=== PATIENT | male | born 1965 | race Caucasian/White ===

== ENCOUNTER 2019-07-20 17:41 | Inpatient (IN) | payer MEDICAID, SELFPAY ==
[2019-07-20 18:07] VITALS: BP 145/87; PULSE 97; RESP 24; TEMP 36.7; O2SAT 97; BMI 42.3
--- NOTE | 2019-07-20 18:31 | XR_ITS ---
WS: [id number] XR chest 1V portable [id number] REASON FOR EXAM: cough FINDINGS: The heart and mediastinal interfaces normal. The lung merino are well aerated. No pneumonia, pleural effusion, pulmonary edema, no mass effect. Th ere is scattered calcified granulomas seen. The hilum and apices are normal. No osseous abnormalities. XR/XR chest 1V portable [id number] IMPRESSION: Negative chest for active pathology
--- NOTE | 2019-07-20 18:33 | ECG_ITS ---
Measurements Intervals [place] Rate: 95 P: -7 MA: 147 QRS: 25 QRSD: 74 T: 46 QT: 335 QTc: 421 SINUS RHYTHM No previous ECG available for comparison Electronically Signed On 07-21-2019 16:53:24 [employer] DIVISION SUPERVISOR by Sudhir Fortune M.D. [email or web address]
[2019-07-20] MEDS: acetaminophen 500 mg Tablet 1000 MG PO (18:49)
[2019-07-20] MEDS: LORazepam 2 mg/mL INJ 1 mL 1 MG IVP (19:00)
[2019-07-20] MEDS: sodium chloride 0.9% 1,000 ML 999 ML IV (19:01)
[2019-07-20 19:05] LABS: Basophils # 0.1 10^3/uL (0.0-0.1); Basophils % 0.9 %; Eosinophils # 0.3 10^3/uL (0.0-0.8); Eosinophils % 3.1 %; Hematocrit 26.3 % (42.0-52.0); Hemoglobin 7.2 g/dL (11.7-16.6); Lymphocytes # 1.9 10^3/uL (0.8-4.8); Lymphocytes % 18.5 %; Mean Corpuscular HGB Conc 27.4 g/dL (30.0-36.0); Mean Corpuscular Hemoglobin 18.4 pg (28.0-34.0); Mean Corpuscular Volume 67.3 fL (80-94); Mean Platelet Volume 9.9 fL (7.4-10.4); Monocytes # 1.1 10^3/uL (0.2-0.9); Monocytes % 11.3 %; Neutrophils # 6.6 10^3/uL (1.8-7.7); Neutrophils % 64.9 %; Nucleated Red Blood Cells # 0.2 /100WBC; Nucleated Red Blood Cells % 1.7 %; Platelet Count 631 10^3/cmm (130-400); Red Blood Count 3.91 10^6/uL (4.1-5.3); White Blood Count 10.1 10^3/uL (4.0-10.0)
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
[2019-07-20 19:19] LABS: Lactic Acid level (Lactate) 3.3 mmol/L (0.5-2.2)
[2019-07-20 19:26] VITALS: BP 146/90; PULSE 94; RESP 16; O2SAT 97
[2019-07-20 19:28] LABS: Alanine Aminotransferase 21 U/L (0-41); Alkaline Phosphatase 85 IU/L (40-130); Anion Gap 17.9 (5-19); Aspartate Amino Transferase 18 U/L (0-40); Blood Urea Nitrogen 13 mg/dL (6-20); Calcium 9.2 mg/dL (8.5-10.5); Carbon Dioxide 23 mmol/L (22-29); Chloride 97 mmol/L (98-107); Globulin 4.1 g/dL (1.3-4.6); Glucose 201 mg/dL (65-115); Lipase 17 U/L (13-60); NT Pro B Type Natriuretic Pept 44 pg/mL (0-125); Potassium 3.9 mmol/L (3.5-5.1); Sodium 134 mmol/L (136-145); Total Bilirubin 0.3 mg/dL (0.15-1.2); Total Protein 8.1 g/dL (6.6-8.7)
[2019-07-20 19:30] VITALS: PULSE 101; RESP 18; O2SAT 95
[2019-07-20] MEDS: ipratropium-albuterol 3 mL Neb INHALATION (19:31)
[2019-07-20 19:35] VITALS: PULSE 95; O2SAT 97
--- NOTE | 2019-07-20 20:20 | CTR_ITS ---
PROCEDURE INFORMATION: Exam: CT Head Without Contrast Exam date and time: 07/20/2019 8:49 PM Age: 53 years old Clinical indication: Other: Syncope TECHNIQUE: Imaging protocol: Computed tomography of the head without contrast. Total DLP: 899.28 mGy-cm Radiation optimization: All CT scans at this facility use at least one of these dose optimization techniques: automated exposure control; mA and/or kV adjustment per patient size (includes targeted exams where dose is matched to clinical indication); or iterative reconstruction. COMPARISON: No relevant prior studies available. FINDINGS: Brain: Normal. No hemorrhage. Unremarkable white matter. No mass effect. Ventricles: Normal. No ventriculomegaly. Bones/joints: Unremarkable. No acute fracture. Sinuses: Visualized sinuses are unremarkable. No fluid levels. Mastoid air cells: Visualized mastoid air cells are well aerated. Soft tissues: Unremarkable. CT/CT head wo con* [id number] IMPRESSION: No acute intracranial abnormality. Radiation Dose CTDIVOL = (mGy): DLP = 899.28 (mGy-cm)
[2019-07-20 21:57] LABS: Influenza A by IFA Negative (Negative)
[2019-07-20 21:58] LABS: Influenza B by IFA Negative (Negative)
[2019-07-20 22:07] LABS: ABG PCO2 34.7 mmHg (35-45); ABG PH Result 7.45 (7.35-7.45); Arterial Blood Gas Hematocrit 22.5 % (42-52); Base Excess ABG 0.1 mmol/L (-2.0-2.0); Blood Gas Allen Test Pos; Blood Gas Sample Site Radial, right; Blood Gas Sample Type Arterial; HCO3 ABG 24.1 mmol/L (22-26); Oxygen Device NC; PO2 ABG 74.5 mmHg (80.0-100.0)
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
--- NOTE | 2019-07-20 23:07 | CTR_ITS ---
PROCEDURE INFORMATION: Exam: CT Angiography Chest With Contrast Exam date and time: 07/20/2019 11:18 PM Age: 53 years old Clinical indication: Condition or disease; Lung condition and disease; Copd; Complications not specified; Cough and other: Syncope; Prior surgery; Surgery date: 6+ months; Surgery type: Stents; Additional info: Syncope and copd TECHNIQUE: Imaging protocol: Computed tomographic angiography of the chest with intravenous contrast. 3D rendering: MIP and/or 3D reconstructed images were created by the technologist. Total DLP: 628.93 mGy-cm Radiation optimization: All CT scans at this facility use at least one of these dose optimization techniques: automated exposure control; mA and/or kV adjustment per patient size (includes targeted exams where dose is matched to clinical indication); or iterative reconstruction. Contrast material: OMNI 350; Contrast volume: 95 ml; Contrast route: 20G; COMPARISON: CR XR chest 1V portable [id number] 07/20/2019 6:[address] angiography chest 12/04/2011. No images. FINDINGS: Pulmonary arteries: Suboptimal pulmonary arterial contrast enhancement. This will limit assessment for pulmonary emboli. No grossly visible pulmonary emboli/pulmonary arterial thrombus. Aorta: Unremarkable. No aortic aneurysm. No aortic dissection. Inferior vena cava: IVC filter. Lungs: Subsegmental alveolar airspace disease process posterior basal segment left lower lobe dimensions 47 mm by 20 mm x 32 mm. Associated mild parenchymal stranding. Adjacent satellite focus of ground-glass interstitial disease measuring under 7 mm. Second adjacent satellite nodule measuring 4 mm. Third adjacent satellite nodule approximately 8 mm in diameter also identified. Unable to differentiate discoid atelectasis from pneumonia or active neoplastic process. The aforementioned constellation of findings raising suspicion to warrant follow up examination. For this reason I would recommend repeat CT of the chest in 3-6 months for further evaluation of the aforementioned findings. For patients at low risk (minimal or absent history of smoking and of other known risk factors), recommend CT at 3-6 months, then consider CT at 18-24 months. For patients at high risk (history of smoking or of other known risk factors), recommend CT at 3-6 months, then CT at 18-24 months. (Anand et al., Fleischner Society, 2017). Pleural space: Unremarkable. No pneumothorax. No pleural effusion. Heart: Assessment of the cardiac structures reveals coronary artery disease. Lymph nodes: Unremarkable. No enlarged lymph nodes. Bones/joints: No visible active musculoskeletal pathology. Soft tissues: Findings suggesting mild gynecomastia. CT/CT angio chest PE protcl [id number] IMPRESSION: 1. Subsegmental alveolar airspace disease process posterior basal segment left lower lobe dimensions 47 mm by 20 mm x 32 mm. Unable to differentiate discoid atelectasis from pneumonia or active neoplastic process. Recommend follow-up CT chest in 3-6 months for further evaluation 2. Adjacent satellite pulmonary nodules left lower lobe. 3. For patients at low risk (minimal or absent history of smoking and of other known risk factors), recommend CT at 3-6 months, then consider CT at 18-24 months. For patients at high risk (history of smoking or of other known risk factors), recommend CT at 3-6 months, then CT at 18-24 months. (Anand et al., Fleischner Society, 2017). 4. Suboptimal pulmonary arterial contrast enhancement. No grossly visible pulmonary embolism. 5. Findings suggesting mild gynecomastia. Radiation Dose CTDIVOL = (mGy): DLP = 628.93 (mGy-cm)
[2019-07-20 23:57] VITALS: BP 138/85; PULSE 94; RESP 24; O2SAT 97
[2019-07-21] VITALS (17 sets, daily range): BP systolic 100–147; BP diastolic 65–85; PULSE 55–100; RESP 16–24; TEMP 36.6–37.2; O2SAT 93–100
[2019-07-21] MEDS: iohexol 350 mg/mL 100 mL Btl IV (00:30)
--- NOTE | 2019-07-21 00:35 | USCV_ITS ---
Socrates Coker Age: 53 Gender: M : 1965 Exam Date: 07/21/2019 06:15 Ordering Phys: Zohreh Samuels MD Technologist: Jessica Bond Exam Location: [facility] Indication: SYNCOPE BP: 127 / 73 HR: 96 Rhythm: Sinus Technical Quality: Very technically difficult study MEASUREMENTS (Male / Female) Normal Values DOPPLER AV Peak Velocity 155.0 cm/s LVOT Peak Velocity 93.0 cm/s MV Area PHT 3.5 cm squared Mitral E to A Ratio 1.2 MV E' Velocity 69.0 cm/s TV Peak E Velocity 74.0 cm/s PV Peak Velocity 111.0 cm/s RV Acceleration Time 0.1 s RV Ejection Time 0.3 s RV AcT/ET 0.3 FINDINGS Left Ventricle Left ventricular cavity not well visualized. Probably normal left ventricular systolic function. Left ventricular ejection fraction is estimated at 55 %. Although no diagnostic regional wall motion abnormality could be identified, this possibility cannot be completely excluded based on the study. Right Ventricle Right ventricle not well visualized. Probably normal right ventricular size and systolic function. Right Atrium Right atrium not well visualized. Left Atrium Left atrium not well visualized. Mitral Valve Mitral valve not well visualized. Aortic Valve Aortic valve not well visualized. No aortic valve stenosis. Tricuspid Valve Tricuspid valve not well visualized. Pulmonic Valve Pulmonic valve not well visualized. No pulmonary valve stenosis. Pericardium No pericardial effusion. Aorta Aorta not well visualized. CONCLUSIONS 1. This is a technically very difficult study. 2. Probably normal left ventricular systolic function. Left ventricular ejection fraction is estimated at 55 %. Although no diagnostic regional wall motion abnormality could be identified, this possibility cannot be completely excluded based on the study. 3. Probably normal right ventricular size and systolic function. 4. No prior similar studies to compare. Aliyah Love MD (Electronically Signed) Final Date: 21 July 2019 13:03 S
[2019-07-21] MEDS: dextrose 5%-sod chloride 0.45% 1,000 ML 75 ML IV (01:29)
[2019-07-21 01:52] LABS: Prolactin 15.67 ng/mL (4.0-15.2)
[2019-07-21 06:12] LABS: Basophils # 0.1 10^3/uL (0.0-0.1); Basophils % 0.6 %; Eosinophils # 0.2 10^3/uL (0.0-0.8); Eosinophils % 2.2 %; Hematocrit 24.1 % (42.0-52.0); Hemoglobin 6.7 g/dL (11.7-16.6); Lymphocytes # 0.9 10^3/uL (0.8-4.8); Lymphocytes % 9.1 %; Mean Corpuscular HGB Conc 27.8 g/dL (30.0-36.0); Mean Corpuscular Hemoglobin 18.6 pg (28.0-34.0); Mean Corpuscular Volume 66.9 fL (80-94); Mean Platelet Volume 10.3 fL (7.4-10.4); Monocytes % 9.7 %; Neutrophils # 7.9 10^3/uL (1.8-7.7); Neutrophils % 77.3 %; Nucleated Red Blood Cells # 0.1 /100WBC; Platelet Count 603 10^3/cmm (130-400); White Blood Count 10.2 10^3/uL (4.0-10.0)
[2019-07-21 06:28] LABS: Anion Gap 14.1 (5-19); Blood Urea Nitrogen 11 mg/dL (6-20); Calcium 8.7 mg/dL (8.5-10.5); Carbon Dioxide 26 mmol/L (22-29); Chloride 97 mmol/L (98-107); Estmated Average Glucose 154; Glucose 205 mg/dL (65-115); Lactic Acid level (Lactate) 2.3 mmol/L (0.5-2.2); Osmolality Calculated 278 mOsm/kg (285-295); Potassium 4.1 mmol/L (3.5-5.1); Sodium 133 mmol/L (136-145)
[2019-07-21 06:38] LABS: Chol HDL Ratio 2.89 mg/dL (1.0-5.00); Cholesterol 107 mg/dL (0-200); HDL Cholesterol 37 mg/dL (60-100); LDL Cholesterol Calculated 50 mg/dL (50-129); LDL HDL Ratio 1.35 RATIO (0.00-3.22); Thyroid Stimulating Hormone 0.96 uIU/mL (0.27-4.20); Triglycerides 98 mg/dL (0-150)
[2019-07-21 06:49] LABS: Alcohol Level < 10 mg/dL (0-10)
[2019-07-21] MEDS: pantoprazole 40 mg SDV IVP ×2 (08:30→17:50)
[2019-07-21] MEDS: folic acid 1 mg Tablet PO (08:30)
[2019-07-21] MEDS: thiamine 100 mg Tablet PO (08:30)
[2019-07-21] MEDS: azithromycin 250 mg Tablet PO (08:30)
[2019-07-21] MEDS: multivitamin therapeutic Tablet 1 TAB PO (08:30)
--- NOTE | 2019-07-21 12:20 | PC.CHAP ---
Pastoral Care Encounter/Spiritual Assessment Type of Contact [] Declined horticultural specialty grower field visit [] Patient/Family/Request visit [] Outpatient visit [] Follow-up visit [] Physician referral [] Code/Alert [x] Routine visit [] Staff referral [] Actively dying [] Patient sleeping [] Family support [] [] Out of room [] Palliative care [] [] Receiving care in room [] Pre-surgical visit [] Trauma [] Long length of stay [] ICU visit [] Other: Relational/Emotional Strength [x] Patient feels connected with others/family/visitors/staff [] Distress [] Loneliness/isolation [] Abandonment Spirituality of Patient [] Person of Marielos [] Attends Methodist of their Marielos [] Believes in Prayer [] Reads Bible or Synagogue materials [x] There are Spiritual issues to be addressed Director Telecommunications Interventions [x] Prayer [x] Active listening [x] Non-anxious presence [x] Spiritual/emotional support [] Crisis/trauma care [x] Spiritual counseling [] Bereavement support [] Provided bereavement packet [] Provided Bible/devotional materials [] Provided toy/stuffed animal, coloring book to patient or family member [] Provided Communion [] Anointing/[place] [] Salvation [] Completed spiritual assessment [] Other: Impact on Illness or Injury [] Angry [] Fearful [] Anxious [] Often cries [] Exhaustion [] Unable to work [] Unable to attend jewish [] Unable to walk/stand [] Unable to read [] Unable to drive [] Unable to eat/drink [] Unable to sleep [] Unable to be with family [] Patient intubated [x] Other: n/a Summary Time spent with patient 4 minutes
--- NOTE | 2019-07-21 14:12 | CTR_ITS ---
PROCEDURE INFORMATION: Exam: CT Abdomen And Pelvis With Contrast Exam date and time: 07/21/2019 2:47 PM Age: 53 years old Clinical indication: Abdominal tenderness; Prior surgery; Surgery type: Stents, appy; Additional info: Gi bleed with elevated lactate TECHNIQUE: Imaging protocol: Computed tomography of the abdomen and pelvis with intravenous contrast. Total DLP: 2378.46 mGy-cm Radiation optimization: All CT scans at this facility use at least one of these dose optimization techniques: automated exposure control; mA and/or kV adjustment per patient size (includes targeted exams where dose is matched to clinical indication); or iterative reconstruction. Contrast material: OMNI 350; Contrast volume: 95 ml; Contrast route: IV; COMPARISON: No relevant prior studies available. FINDINGS: Lungs: Area of consolidation at the left lung base reported on chest CT earlier same date. No change. Liver: There is hepatic steatosis. No focal hepatic lesion. Gallbladder and bile ducts: The gallbladder is normal. Pancreas: The pancreas is normal. Spleen: The spleen is normal. Adrenals: The adrenal glands are normal. Kidneys and ureters: The kidneys are normal. No hydronephrosis. Stomach and bowel: Series 3 images 36 to 41, coronal images 59-62 and sagittal images 41-45 demonstrate a 6 cm length of the transverse colon which demonstrates circumferential wall thickening. There is infiltration of the adjacent fat. There are no colonic diverticula. There is no evidence of pneumatosis. Appendix: No evidence of appendicitis. Intraperitoneal space: Unremarkable. No free air. No significant fluid collection. Vasculature: There is an IVC filter in place which appears appropriately position. No evidence of venous thrombus. Lymph nodes: Unremarkable. No enlarged lymph nodes. Bladder: The bladder is normal with no evidence of calculi. Reproductive: Unremarkable as visualized. Bones/joints: There are degenerative changes of the spine. No fracture. No focal osseous lesion. Soft tissues: Of incidental note are 2 areas of focal wall thickening and infiltration of the subcutaneous fat within the anterior abdominal wall. This could be secondary to inflammation or scarring. CT/CT abdomen pelvis w con* [id number] IMPRESSION: There is a 6 cm length of the transverse colon with circumferential wall thickening and infiltration of the adjacent fat. This is highly suspicious for colonic neoplasm. Inflammatory, infectious or ischemic colitis is unlikely to result in such a short segment of circumscribed circumferential wall thickening. Radiation Dose CTDIVOL = (mGy): DLP = 2378.46 (mGy-cm)
[2019-07-21] MEDS: magnesium citrate Btl 296 mL PO ×2 (15:33→20:56)
[2019-07-21] MEDS: bisacodyl 5 mg Tablet 40 MG PO (15:34)
[2019-07-21] MEDS: benzonatate 100 mg Capsule 200 MG PO ×2 (15:34→20:56)
[2019-07-21] MEDS: folic acid 1 MG, multivitamin inj 10 ML, thiamine 100 MG in sodium chloride 0.9% 1,000 ML 252.8 MG IV (15:35)
--- NOTE | 2019-07-21 15:59 | P.PN_ITS ---
Subjective Subjective: Interval history: Admitted overnight. H&P and labs noted. On examination patient is lying comfortably in bed, he had one bout of cough during my interview. Patient states he has been having recurrent episodes of syncope which are preceded by cough. He is also been complaining of shortness of breath on exertion for last 3 weeks. Patient states he has been having black tarry watery bowel movements for last 2 to 3 months and sometimes he is also had king blood in the pot after having his bowel movements. He denies of having any nausea, vomiting, headache, palpitations. Patient is a chronic alcoholic and drinks over 6 cans of beer every day. He denies of using every [id number] pain medication except Tylenol which she has been taking for last 1 week. He states he has taken 2 to 3 tablets in 1 week. He denies of having any previous history of similar complaints. He gives family history of prostate cancer. She has a history of 2 abdominal surgeries in the past 1 for a possible appendectomy and second was a possible exploration surgery when he had ingested cocaine bags. Vitals/I&O/Wt Last Vital Signs Temp 98.6 F 07/21/19 11:30 Pulse 92 07/21/19 11:30 Resp 20 H 07/21/19 11:30 BP 118/74 07/21/19 11:30 Pulse Ox 93 07/21/19 11:30 07/21/19 07/21/19 07/21/19 06:59 14:59 22:59 Intake Total 225 / 225 Balance 225 / 225 Weight last 48 hrs Weight 122.47 kg Physical Exam Narrative: EXAM NARRATIVE: General: No acute distress, AO x3, morbidly obese, pallor present HEENT: PERRLA, pupils bilaterally equal and reactive Chest: Normal vesicular breath sounds, no added sounds, equal good air entry bilaterally CVS: S1-S2 regular, no murmurs, no tachycardia, no gallops, no rubs Abdomen: Soft, nontender, no organomegaly, bowel sounds present, surgical scars present in the center of the abdomen from epigastric to navel area, also surgical scar present in right lower quadrant. Neuro: No focal deficits, no facial deformity, AO x3, power 5/5 in all limbs Data : 07/21/19 05:45 07/21/19 05:45 Micro: Microbiology 07/20/19 18:45 Blood Culture - Preliminary Blood SPECIMEN COLLECTED 07/20/19 18:44 Blood Culture - Preliminary Blood SPECIMEN COLLECTED A&P Assessment and plan (1) Syncope: Status: Acute Code(s): R55 - Syncope and collapse (2) Blood loss anemia: Status: Acute Code(s): D50.0 - Iron deficiency anemia secondary to blood loss (chronic) (3) Cough syncope: Status: Acute Code(s): R05 - Cough (4) Alcohol abuse: Status: Acute Code(s): F10.10 - Alcohol abuse, uncomplicated Additional A&P Information Blood loss anemia: Patient is a chronic alcoholic, has a history of prostate cancer, surgical abdominal history of exploration surgery for cocaine bags. Patient has history of black tarry bowel movements We will consult general surgery for EGD and colonoscopy. Protonix 40 mg IV twice daily. Transfused 2 units PRBC. Check hemoglobin hematocrit every 12 hours. Will do CTA chest given elevated lactate levels to rule out bowel ischemia. Patient is also being tender in the right lower quadrant. Check PT/INR, repeat lactate as last 1 was elevated. On discussion with Dr. Carmona from general surgery we will start patient on clear liquid diet today, will most likely need bowel prep during the evening. N.p.o. after midnight for possible EGD/colonoscopy tomorrow morning. Alcohol abuse: Ativan as per [facility] protocol. Banana bag. Followed by normal saline at 75 cc/h. Thiamine, folic acid, multivitamins as per protocol. Alcohol levels negative. Will check drug urine. Syncopal event: Most likely cough induced vasovagal. Prolactin level is mildly elevated which could be because of alcohol abuse. We will continue to monitor for any seizures and if required will start on medications at that time. Patient would most likely need outpatient neurology follow-up for a possible EEG. Morbid obesity: He will need outpatient sleep study Noncompliance: Patient does not use any medication at home, A1c level 7. Will start patient on insulin sliding scale at low protocol. TSH within normal limits. Full code No need of DVT prophylaxis because of anemia, will use SCDs Clear liquid diet today. Attestations Medical Necessity Statement*: Acute blood loss anemia, GI bleed, alcohol abuse Coding Level of Care Code Acute Experimental Mechanic for [facility] Fwd Diagnoses Syncope R55 Blood loss anemia D50.0 Cough syncope R05 Alcohol abuse F10.10
[2019-07-21 16:18] LABS: INR 1.07 (0.8-1.2)
[2019-07-21 16:39] LABS: Ferritin 5 ng/mL (30-400)
[2019-07-21] MEDS: sodium chloride 0.9% 100 ML 50 ML (17:49)
[2019-07-21] MEDS: sodium chloride 0.9% 1,000 ML 75 ML IV (20:56)
[2019-07-21] MEDS: diphenhydrAMINE 25 mg Capsule PO (21:47)
[2019-07-21] MEDS: LORazepam 2 mg Tablet PO (21:47)
[2019-07-21 22:46] LABS: Basophils % 0.3 %; Eosinophils # 0.1 10^3/uL (0.0-0.8); Eosinophils % 1.2 %; Hematocrit 28.8 % (42.0-52.0); Hemoglobin 8.1 g/dL (11.7-16.6); Lymphocytes # 1.2 10^3/uL (0.8-4.8); Lymphocytes % 15.7 %; Mean Corpuscular HGB Conc 28.1 g/dL (30.0-36.0); Mean Corpuscular Hemoglobin 19.5 pg (28.0-34.0); Mean Corpuscular Volume 69.2 fL (80-94); Mean Platelet Volume 10.6 fL (7.4-10.4); Monocytes # 0.8 10^3/uL (0.2-0.9); Monocytes % 10.1 %; Neutrophils # 5.6 10^3/uL (1.8-7.7); Neutrophils % 71.8 %; Nucleated Red Blood Cells # 0.1 /100WBC; Nucleated Red Blood Cells % 1.3 %; Platelet Count 565 10^3/cmm (130-400); Red Blood Count 4.16 10^6/uL (4.1-5.3); Red Cell Distribution Width 19.9 % (12.1-15.1); White Blood Count 7.8 10^3/uL (4.0-10.0)
[2019-07-22] VITALS (11 sets, daily range): BP systolic 91–130; BP diastolic 60–79; PULSE 59–93; RESP 16–20; TEMP 36.6–37.8; O2SAT 93–100
[2019-07-22 06:36] LABS: Alanine Aminotransferase 16 U/L (0-41); Albumin Level 3.3 g/dL (3.5-5.2); Alkaline Phosphatase 75 IU/L (40-130); Anion Gap 18.6 (5-19); Aspartate Amino Transferase 20 U/L (0-40); Blood Urea Nitrogen 8 mg/dL (6-20); Calcium 8.7 mg/dL (8.5-10.5); Carbon Dioxide 22 mmol/L (22-29); Chloride 100 mmol/L (98-107); Globulin 3.9 g/dL (1.3-4.6); Glomerular Filtration Rate 140.9 mL/min (90-130); Glucose 144 mg/dL (65-115); Potassium 4.6 mmol/L (3.5-5.1); Sodium 136 mmol/L (136-145); Total Bilirubin 1.1 mg/dL (0.15-1.2); Total Protein 7.2 g/dL (6.6-8.7)
[2019-07-22 06:36] LABS: Iron 102 ug/dL (59-158); Percent Saturation 26.4 % (20-50); Total Iron Binding Capacity 385 mcg/dl; Unsaturated Iron Binding 283 ug/dL (112-347)
[2019-07-22 07:41] LABS: Basophils % 0.5 %; Eosinophils # 0.2 10^3/uL (0.0-0.8); Eosinophils % 2.8 %; Hematocrit 30.7 % (42.0-52.0); Hemoglobin 8.7 g/dL (11.7-16.6); Lymphocytes # 1.1 10^3/uL (0.8-4.8); Mean Corpuscular HGB Conc 28.3 g/dL (30.0-36.0); Mean Corpuscular Hemoglobin 20.2 pg (28.0-34.0); Mean Corpuscular Volume 71.2 fL (80-94); Mean Platelet Volume 10.7 fL (7.4-10.4); Monocytes # 0.9 10^3/uL (0.2-0.9); Monocytes % 10.4 %; Neutrophils # 6.1 10^3/uL (1.8-7.7); Neutrophils % 72.6 %; Nucleated Red Blood Cells # 0.1 /100WBC; Nucleated Red Blood Cells % 1.1 %; Platelet Count 541 10^3/cmm (130-400); Red Blood Count 4.31 10^6/uL (4.1-5.3); Red Cell Distribution Width 20.1 % (12.1-15.1); White Blood Count 8.4 10^3/uL (4.0-10.0)
[2019-07-22] MEDS: pantoprazole 40 mg SDV IVP (09:53)
[2019-07-22] MEDS: thiamine 100 mg Tablet PO (10:16)
[2019-07-22] MEDS: benzonatate 100 mg Capsule 200 MG PO ×2 (10:16→15:44)
[2019-07-22] MEDS: folic acid 1 mg Tablet PO (10:16)
[2019-07-22] MEDS: azithromycin 250 mg Tablet PO (10:16)
[2019-07-22] MEDS: multivitamin therapeutic Tablet 1 TAB PO (10:16)
[2019-07-22] MEDS: sodium chloride 0.9% 1,000 ML 30 ML (12:17)
--- NOTE | 2019-07-22 12:32 | PC.RESP ---
Patient given information on Pulmonary Rehab.
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
[2019-07-22 14:09] LABS: Carcinoembryonic Antigen 5.3 ng/mL (0.0-4.7)
--- NOTE | 2019-07-22 21:09 | PM.DCS ---
Discharge Providers Date of Admission: 07/21/19 14:15 Date of Discharge: July 22, 2019 Attending Provider at Admission: Zohreh Samuels MD Attending Provider at Discharge: Vlad Sauceda Diagnoses at Discharge Discharge Diagnosis (1) Anemia: Status: Acute (2) Secondary malignant neoplasm of transverse colon: Status: Acute (3) Pneumonia: Status: Acute Reason for Visit Reason for Visit: Reason For Visit: blacking out Hospital Course Hospital Course: 53-year-old gentleman was assessed in the hospital due to melanotic stools, syncopal events and shortness of breath, found to have symptomatic anemia for which he received transfusion of 2 units of PRBC. No further symptoms noted in the hospital. Episodes are not suspicious for seizure. CT of the head was unremarkable. Lactic acid suspected secondary to malignancy with noted tumor in the transverse colon with near occlusion, not allowing scope to pass into the proximal colon. Biopsies obtained by surgery during colonoscopy. CTA without finding of PE, however, with noted opacity in the left lower lobe concerning for possible atelectasis versus pneumonia, although metastatic disease could not be excluded. At this time given low-grade temperature, and patient complaining of intermittent cough, shortness of breath, will undergo course of treatment with Levaquin. He will follow-up with surgery for results of biopsy and further planning for excision of the narrowed part of the colon with tumorous growth, and referral for additional follow-up with oncology. Findings on chest imaging will need additional assessment during staging of the suspected malignancy in case of no resolution with antibiotic treatment for pneumonia. His sister was at bedside, per speaking with the discussion regarding the findings on colonoscopy, suspected malignancy, and need for follow-up with specialty, and has been agreeable to assist her brother with his needs and encourage timely follow-up. Both expressed understanding regarding concern for seriousness of the underlying condition. Physical Exam Const: COMMON NORMALS: no apparent distress and oriented x3 NUTRITIONAL APPEARANCE: obese HENMT: COMMON NORMALS: oropharynx normal Neck/C-Spine: COMMON NORMALS: no JVD Resp: COMMON NORMALS: normal respiratory effort and clear to auscultation bilaterally AUSCULTATION: clear to auscultation bilaterally Cardio: COMMON NORMALS: no JVD, regular rhythm, S1 normal heart sound, S2 normal heart sound and no murmurs RHYTHM: regular rhythm HEART SOUNDS: S1 normal and S2 normal GI: COMMON NORMALS: normal to inspection, nondistended, normoactive bowel sounds, soft to palpation and non-tender PALPATION: Yes soft Extremity: COMMON NORMALS: no joint enlargement and no pedal edema Neuro: COMMON NORMALS: oriented x3 and moves all extremities Skin: COMMON NORMALS: no rashes or lesions noted GENERAL SKIN EXAM: no rashes or lesions noted OTHER: Tattoos. Discharge Data Data Completed and Pending: Completed Studies During Hospitalization Category Date Time Status CT abdomen pelvis w con* [id number] Rout ine Cat Scan 07/21/19 14:[address] angio chest PE protcl [id number] Urge nt Cat Scan 07/20/19 23:[address] head wo con* [id number] Urgent Cat Scan 07/20/19 20:20 Completed XR chest 1V billy ble [id number] Urgent Exams 07/20/19 18:31 Completed CV echo complete* [id number] Urgent Ultrasound 07/21/19 00:35 Completed Pending at discharge Category Date Time Status Arterial Blood Ga s W/O Coox Routine Lab 07/20/19 18:31 Ordered Blood Culture Sta t Lab 07/20/19 18:45 Results Pathology: Surgic al [PTH] Routine Pth 07/22/19 13:38 Received Labs from last 24 hours 07/22/19 07/22/19 07/22/19 06:56 06:56 04:50 WBC 8.4 RBC 4.31 Hgb 8.7 L Hct 30.7 L MCV 71.2 L MCH 20.2 L MCHC 28.3 L RDW 20.1 H Plt Count 541 H MPV 10.7 H Neut % (Auto) 72.6 Lymph % (Auto) 13.0 [place] % (Auto) 10.4 Eos % (Auto) 2.8 Baso % (Auto) 0.5 Neut # (Auto) 6.1 Lymph # (Auto) 1.1 [place] # (Auto) 0.9 Eos # (Auto) 0.2 Baso # (Auto) 0.0 Nucleated RBC % (a uto) 1.1 Nucleated RBCs # 0.1 Sodium 136 Potassium 4.6 Chloride 100 Carbon Dioxide 22 Anion Gap 18.6 BUN 8 Creatinine 0.6 L GFR Calculation 140.9 H Glucose 144 H Calcium 8.7 Iron TIBC % Saturation Unsat Iron Binding Total Bilirubin 1.1 AST 20 ALT 16 Alkaline Phosphata se 75 Total Protein 7.2 Albumin 3.3 L Globulin 3.9 Carcinoembryonic A g 5.3 H Blood Type Rho(D) Type Antibody Screen Crossmatch 07/21/19 07/21/19 07/21/19 22:30 05:45 04:50 WBC 7.8 RBC 4.16 Hgb 8.1 L Hct 28.8 L MCV 69.2 L MCH 19.5 L MCHC 28.1 L RDW 19.9 H Plt Count 565 H MPV 10.6 H Neut % (Auto) 71.8 Lymph % (Auto) 15.7 [place] % (Auto) 10.1 Eos % (Auto) 1.2 Baso % (Auto) 0.3 Neut # (Auto) 5.6 Lymph # (Auto) 1.2 [place] # (Auto) 0.8 Eos # (Auto) 0.1 Baso # (Auto) 0.0 Nucleated RBC % (a uto) 1.3 Nucleated RBCs # 0.1 Sodium Potassium Chloride Carbon Dioxide Anion Gap BUN Creatinine GFR Calculation Glucose Calcium Iron 102 TIBC 385 % Saturation 26.4 Unsat Iron Binding 283 Total Bilirubin AST ALT Alkaline Phosphata se Total Protein Albumin Globulin Carcinoembryonic A g Blood Type A Positive Rho(D) Type Positive Antibody Screen Negative Crossmatch See Detail Vitals: Last Vital Signs Temp 100.0 F H 07/22/19 18:35 Pulse 85 07/22/19 18:35 Resp 18 07/22/19 18:35 BP 91/60 07/22/19 18:35 Pulse Ox 93 07/22/19 18:35 Discharge Plan Discharge Patient Disposition: Home, Self-Care Condition: Stable Prescriptions: New Levaquin 750 mg tablet 750 mg PO DAILY 7 Days Qty: 7 RF: 0 albuterol sulfate 90 mcg/actuation HFA aerosol inhaler 2 inh INHALATION Q6H PRN (Reason: shortness of breath or wheezing) Qty: 8.5 RF: 0 Spiriva Respimat 1.25 mcg/actuation mist 2 puff INHALATION DAILY Qty: 4 RF: 0 Continued Tylenol 325 mg Tablet 325 mg PO QID PRN (Reason: Pain) RF: 0 Discharge Orders: Discharge Order (Routine); Ordered 07/22/19 Ordered By: Vlad Sauceda Referrals: Trav Carmona MD [Physician] - 08/05/19 10:30 am (After pathology results) Roxanna Murphy FNP-C [Referring] - 08/01/19 9:20 am Discharge Diet: Advance as tolerated and GI Soft Discharge Activity: Increase activity as tolerated Patient Instructions: Alcohol Abuse, Anemia, Albuterol (By breathing), Levofloxacin (By mouth), Tiotropium (By breathing), Iron Rich Diet (DC), Inferior Vena Cava Filter Placement (DC) Activity Restrictions/Additional Instructions: Avoid constipation and dehydration. Please abstain from oral at least reduce consumption of alcohol. Inhalers are prescribed for you to use due to shortness of breath and COPD. Please complete the antibiotic course and use incentive spirometry to rule out atelectasis and pneumonia as causes of 47 mm x 20 mm x 32 mm not clearly defined airspace disease process in the left lower lung. This will need additional follow-up by her primary care provider to make sure this is not metastatic disease. Discharge Date/Time: 07/22/19 18:00 Discharge Attestations Time Spent in Discharge Care*: greater than 30 min Quality Metrics Clinical Quality Measures During this hospital stay, did patient experience: None Coding Level of Care Code Acute Agriculture Laborer for Chg Fwd Diagnoses Anemia D64.9 Secondary malignant neoplasm of transverse colon C78.5 Pneumonia J18.9
== END 2019-07-22 18:00 | disposition home or self-care (01) | DRG 374 ==
LOC: ER 23:18 → MEDSURG 23:43
PROVIDERS: Student in an Organized Health Care Education/Training Program; Surgery; Admitting Provider Internal Medicine; Emergency Provider Emergency Medicine; Visit Provider Internal Medicine
PROC: 0DJ08ZZ Inspection of Upper Intestinal Tract, Via Natural or Artificial Opening Endoscopic (ICD-10-PCS; CPT 43235; principal; 2019-07-22 13:00)
PROC: 0DJD8ZZ Inspection of Lower Intestinal Tract, Via Natural or Artificial Opening Endoscopic (ICD-10-PCS; CPT 45378; 2019-07-22 13:00)
DX: C18.4 Malignant neoplasm of transverse colon (principal); J18.9 Pneumonia, unspecified organism; J45.901 Unspecified asthma with (acute) exacerbation; D62 Acute posthemorrhagic anemia; Z68.41 Body mass index [BMI] 40.0-44.9, adult; J44.9 Chronic obstructive pulmonary disease, unspecified; Z86.711 Personal history of pulmonary embolism; D64.9 Anemia, unspecified; Z88.5 Allergy status to narcotic agent; Z87.891 Personal history of nicotine dependence; R05 Cough; Z85.46 Personal history of malignant neoplasm of prostate; F10.20 Alcohol dependence, uncomplicated; E66.01 Morbid (severe) obesity due to excess calories; Z91.14 Patient's other noncompliance with medication regimen; K64.8 Other hemorrhoids; K57.30 Diverticulosis of large intestine without perforation or abscess without bleeding
CPT/HCPCS: 12345; 36415; 36430; 36600; 43235; 45380; 70450; 71045; 71275; 74177; 80048; 80053; 80061; 80307; 82378; 82728; 82803; 83036; 83540; 83550; 83605; 83690; 83880; 84146; 84443; 85025; 85610; 86850; 86900; 86920; 87040; 87804; 88305; 93005; 93306; 94640; 96372; 96375; 99282; C9113; G0378; J2060; J2704; J3411; J3490; J7030; J7611; J7799; P9016; Q0144; Q9967

== ENCOUNTER 2019-08-08 17:32 | Emergency (ER) | payer MEDICAID, SELFPAY ==
[2019-08-08 17:50] VITALS: PULSE 110; RESP 20; TEMP 37.3; O2SAT 97; BMI 47.0
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
[2019-08-08 18:00] VITALS: TEMP 37.3; O2SAT 97
--- NOTE | 2019-08-08 18:01 | XRR_ITS ---
PROCEDURE INFORMATION: Exam: XR Chest, 1 View Exam date and time: 08/08/2019 6:26 PM Age: 53 years old Clinical indication: Cough; Additional info: Cough, SOA TECHNIQUE: Imaging protocol: XR of the chest Views: 1 view. COMPARISON: CR XR chest 1V portable [id number] 07/20/2019 6:45 PM FINDINGS: Lungs: Unremarkable. No consolidation. Pleural space: Unremarkable. No pleural effusion. No pneumothorax. Heart/Mediastinum: Unremarkable. No cardiomegaly. Bones/joints: Old right rib fracture. XR/XR chest 1V portable [id number] IMPRESSION: No acute findings.
[2019-08-08 18:44] LABS: Basophils # 0.1 10^3/uL (0.0-0.1); Eosinophils # 0.1 10^3/uL (0.0-0.8); Eosinophils % 1.7 %; Hematocrit 29.9 % (42.0-52.0); Hemoglobin 8.5 g/dL (11.7-16.6); Lymphocytes # 1.1 10^3/uL (0.8-4.8); Lymphocytes % 14.8 %; Mean Corpuscular HGB Conc 28.4 g/dL (30.0-36.0); Mean Corpuscular Hemoglobin 20.3 pg (28.0-34.0); Mean Corpuscular Volume 71.5 fL (80-94); Mean Platelet Volume 10.6 fL (7.4-10.4); Monocytes # 0.9 10^3/uL (0.2-0.9); Monocytes % 11.7 %; Neutrophils # 5.4 10^3/uL (1.8-7.7); Neutrophils % 70.2 %; Nucleated Red Blood Cells % 0.4 %; Platelet Count 562 10^3/cmm (130-400); Red Blood Count 4.18 10^6/uL (4.1-5.3); Red Cell Distribution Width 21.4 % (12.1-15.1); White Blood Count 7.7 10^3/uL (4.0-10.0)
[2019-08-08 18:45] LABS: Influenza A by IFA Negative (Negative); Influenza B by IFA Negative (Negative)
[2019-08-08 19:09] LABS: Alanine Aminotransferase 17 U/L (0-41); Albumin Level 3.9 g/dL (3.5-5.2); Alkaline Phosphatase 95 IU/L (40-130); Anion Gap 20.4 (5-19); Aspartate Amino Transferase 16 U/L (0-40); Blood Urea Nitrogen 6 mg/dL (6-20); Calcium 9.4 mg/dL (8.5-10.5); Carbon Dioxide 22 mmol/L (22-29); Chloride 92 mmol/L (98-107); Globulin 4.1 g/dL (1.3-4.6); Glomerular Filtration Rate 140.9 mL/min (90-130); Glucose 307 mg/dL (65-115); NT Pro B Type Natriuretic Pept 121 pg/mL (0-125); Osmolality Calculated 277 mOsm/kg (285-295); Potassium 4.4 mmol/L (3.5-5.1); Sodium 130 mmol/L (136-145); Total Bilirubin 0.3 mg/dL (0.15-1.2)
[2019-08-08] MEDS: acetaminophen 325 mg Tablet 650 MG PO (19:36)
[2019-08-08 20:32] VITALS: BP 146/82; PULSE 111; RESP 16; TEMP 36.6; O2SAT 97
[2019-08-12 08:49] LABS: Coronavirus Qual PCR Source SEE REPORT; Patient Symptomatic? SEE REPORT
[2019-08-12 08:50] LABS: Coronavirus Overall Results NOT DETECTED; Pan-SARS RNA: SEE REPORT; SARS-CoV-2 RNA: SEE REPORT
== END 2019-08-08 20:36 | disposition home or self-care (01) ==
PROVIDERS: Emergency Provider Emergency Medicine; PCP Nurse Practitioner Family
DX: J06.9 Acute upper respiratory infection, unspecified (principal); D63.0 Anemia in neoplastic disease; C78.5 Secondary malignant neoplasm of large intestine and rectum; J44.9 Chronic obstructive pulmonary disease, unspecified; Z87.891 Personal history of nicotine dependence
CPT/HCPCS: 12345; 36415; 71045; 80053; 83880; 85025; 87635; 87804; 99282; 99283

== ENCOUNTER 2019-11-21 18:38 | Emergency (ER) | payer MEDICAID, SELFPAY ==
[2019-11-21] VITALS (14 sets, daily range): BP systolic 97–136; BP diastolic 57–85; PULSE 71–97; RESP 14–20; TEMP 36.6–36.8; O2SAT 91–99; BMI 46.0
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
[2019-11-21 19:37] LABS: Basophils # 0.1 10^3/uL (0.0-0.1); Basophils % 0.6 %; Eosinophils # 0.3 10^3/uL (0.0-0.8); Eosinophils % 3.6 %; Hematocrit 27.9 % (42.0-52.0); Hemoglobin 7.6 g/dL (11.7-16.6); Mean Corpuscular HGB Conc 27.2 g/dL (30.0-36.0); Mean Corpuscular Hemoglobin 18.9 pg (28.0-34.0); Mean Corpuscular Volume 69.4 fL (80-94); Mean Platelet Volume 10.1 fL (7.4-10.4); Monocytes % 10.6 %; Neutrophils % 63.8 %; Nucleated Red Blood Cells % 0.3 %; Platelet Count 584 10^3/cmm (130-400); Red Blood Count 4.02 10^6/uL (4.1-5.3); Red Cell Distribution Width 18.6 % (12.1-15.1); White Blood Count 9.5 10^3/uL (4.0-10.0)
--- NOTE | 2019-11-21 20:00 | ECG_ITS ---
[facility] Test Date: 2019-11-21 Pat Name: Socrates Coker Department: Room: Gender: Male Machine Sander: : 1965 Requested By: Nikolai Campuzano Order Number: [id number] Constantine MD: Sudhir Fortune M.D. Measurements Intervals [place] Rate: 89 P: 29 NH: 149 QRS: 41 QRSD: 84 T: 83 QT: 357 QTc: 436 Interpretive Statements SINUS RHYTHM MINIMAL ST DEPRESSION [0.025+ mV ST DEPRESSION] Compared to ECG 07/20/2019 18:17:25 ST (T wave) deviation now present Electronically Signed On 11-22-2019 16:53:38 CDT by Sudhir Fortune M.D. [email or web address]
[2019-11-21 20:13] LABS: Anion Gap 20.2 (5-19); Blood Urea Nitrogen 9 mg/dL (6-20); Calcium 9.9 mg/dL (8.5-10.5); Carbon Dioxide 25 mmol/L (22-29); Chloride 96 mmol/L (98-107); Creatinine Clr Calc Pharmacy 140.4724; Glomerular Filtration Rate 101.1 mL/min (90-130); Glucose 128 mg/dL (65-115); Osmolality Calculated 282 mOsm/kg (285-295); Potassium 4.2 mmol/L (3.5-5.1); Sodium 137 mmol/L (136-145)
[2019-11-21] MEDS: diphenhydrAMINE 50 mg/mL SDV 1mL 25 MG IVP (21:28)
[2019-11-21] MEDS: acetaminophen 500 mg Tablet 1000 MG PO (21:28)
[2019-11-21] MEDS: HYDROmorphone 1 mg/mL INJ 1 mL IVP (21:56)
--- NOTE | 2019-11-21 22:05 | PC.NURSE ---
Pt. placed on 02 2L per NC for low 02 saturation. MD notified. RT to come and assess Pt. Pt. positioned for comfort. Medicated for pain.
[2019-11-21] MEDS: ipratropium-albuterol 3 mL Neb INHALATION (22:25)
[2019-11-22 00:30] VITALS: BP 128/58; PULSE 78; RESP 18
[2019-11-22 01:32] VITALS: BP 102/64; PULSE 85; RESP 18; O2SAT 96
[2019-11-22 02:40] VITALS: BP 95/54; PULSE 86; RESP 18; TEMP 36.6
[2019-11-22 03:13] VITALS: PULSE 78; RESP 18; TEMP 36.4
[2019-11-22 03:18] VITALS: BP 95/58; PULSE 87; RESP 18; TEMP 36.6; O2SAT 93
[2019-11-22 04:27] VITALS: BP 142/86; PULSE 82; RESP 18; TEMP 36.7
== END 2019-11-22 05:00 | disposition home or self-care (01) ==
PROVIDERS: Emergency Medicine; Emergency Provider Emergency Medicine; PCP Nurse Practitioner Family
DX: D50.0 Iron deficiency anemia secondary to blood loss (chronic) (principal); Z79.4 Long term (current) use of insulin; J44.9 Chronic obstructive pulmonary disease, unspecified; Z87.891 Personal history of nicotine dependence; Z85.038 Personal history of other malignant neoplasm of large intestine
CPT/HCPCS: 12345; 36415; 36430; 80048; 85025; 86850; 86900; 86920; 93005; 94640; 96361; 96374; 96375; 99283; C1751; J1170; J1200; P9016

== ENCOUNTER 2019-12-19 14:09 | Outpatient (CLI) | payer MEDICAID, SELFPAY ==
[2019-12-19 14:56] LABS: Basophils # 0.1 10^3/uL (0.0-0.1); Basophils % 0.4 %; Eosinophils # 0.2 10^3/uL (0.0-0.8); Eosinophils % 1.5 %; Hematocrit 32.7 % (42.0-52.0); Hemoglobin 9.4 g/dL (11.7-16.6); Lymphocytes # 1.3 10^3/uL (0.8-4.8); Lymphocytes % 10.2 %; Mean Corpuscular HGB Conc 28.7 g/dL (30.0-36.0); Mean Corpuscular Hemoglobin 22.7 pg (28.0-34.0); Mean Platelet Volume 12.1 fL (7.4-10.4); Monocytes # 1.2 10^3/uL (0.2-0.9); Monocytes % 9.9 %; Neutrophils # 9.57 10^3/uL (1.8-7.7); Neutrophils % 77.3 %; Nucleated Red Blood Cells % 0 %; Platelet Count 497 10^3/cmm (130-400); Red Blood Count 4.14 10^6/uL (4.1-5.3); Red Cell Distribution Width 24.6 % (12.1-15.1); White Blood Count 12.4 10^3/uL (4.0-10.0)
[2019-12-19 15:00] LABS: Blood Urea Nitrogen 6 mg/dL (6-20); Calcium 8.6 mg/dL (8.5-10.5); Carbon Dioxide 21 mmol/L (22-29); Chloride 97 mmol/L (98-107); Glomerular Filtration Rate 140.9 mL/min (90-130); Glucose 120 mg/dL (65-115); Osmolality Calculated 271 mOsm/kg (285-295); Sodium 132 mmol/L (136-145)
[2019-12-19 15:11] LABS: Anion Gap 17.8 (5-19)
[2019-12-19 15:12] LABS: Potassium 3.8 mmol/L (3.5-5.1)
== END 2019-12-19 14:10 | disposition home or self-care (01) ==
PROVIDERS: PCP Nurse Practitioner Family; Visit Provider Colon & Rectal Surgery
DX: R11.10 Vomiting, unspecified (principal)
CPT/HCPCS: 36415; 80048; 85025

== ENCOUNTER 2019-12-29 17:00 | Inpatient (IN) | payer MEDICAID, SELFPAY ==
[2019-12-29] VITALS (10 sets, daily range): BP systolic 101–161; BP diastolic 60–107; PULSE 72–99; RESP 16–20; TEMP 36.4–37.2; O2SAT 92–97; BMI 40.7
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
[2019-12-29] MEDS: morphine 4 mg/mL SDV 1 mL IVP ×4 (17:28→22:24)
[2019-12-29] MEDS: ondansetron 2 mg/ML SDV 2 mL 4 MG IVP (17:29)
[2019-12-29] MEDS: sodium chloride 0.9% 1,000 ML 999 ML IV (17:29)
--- NOTE | 2019-12-29 17:32 | CTR_ITS ---
PROCEDURE INFORMATION: Exam: CT Abdomen And Pelvis With Contrast Exam date and time: 12/29/2019 5:41 PM Age: 54 years old Clinical indication: Constipation and nausea and vomiting; Abdominal pain; Prior surgery; Surgery type: Egd, stents, appy, bowel; Patient HX: Colectomy x 2weeks; Additional info: Abd pain TECHNIQUE: Imaging protocol: Computed tomography of the abdomen and pelvis with intravenous contrast. Radiation optimization: All CT scans at this facility use at least one of these dose optimization techniques: automated exposure control; mA and/or kV adjustment per patient size (includes targeted exams where dose is matched to clinical indication); or iterative reconstruction. Contrast material: OMNI 300; Contrast volume: 95 ml; Contrast route: INTRAVENOUS (IV); COMPARISON: CT angio chest w abd pel w con 07/21/2019 3:24 PM RADIATION DOSE METRICS: Total DLP (mGy-cm): 1905.13 FINDINGS: Lungs: Limited assessment lung bases without evidence for active cardiopulmonary process. Minimal left lower lobe parenchymal scar. Liver: Unremarkable. No mass. Gallbladder and bile ducts: Normal. No calcified stones. No ductal dilation. Pancreas: Normal. No ductal dilation. Spleen: Normal. No splenomegaly. Adrenals: Normal. No mass. Kidneys and ureters: Normal. No hydronephrosis. Stomach and bowel: Status post gastroplasty with marked gastric distention proximal to the anastomotic sutures. Concern for a partial high-grade gastric outlet obstruction. Status post partial colectomy. Anastomotic suture line intact. Small bowel loops not ectatic. Appendix: Surgically removed. Intraperitoneal space: Anterior left upper quadrant intraperitoneal loculated fluid collection measuring 14.9 cm x 5.5 cm x 10.7 cm. Potential abscess. Postoperative seroma is a differential consideration. Surrounding mesenteric fat stranding. Second unorganized potential fluid collection within the intraperitoneal mesenteric space just distal to the loculated fluid collection dimensions approximately 5.5 cm x 2.5 cm x 4.0 cm. Potential unorganized seroma, hematoma, or even abscess. Again surrounding mesenteric fat inflammatory response. No free fluid in the pelvis. No generalized intraperitoneal ascites. Vasculature: IVC filter. The abdominal aorta is nonaneurysmal. Mild arterial sclerotic disease Lymph nodes: No visible active mesenteric or retroperitoneal lymphadenopathy. Bladder: Unremarkable as visualized. Reproductive: Unremarkable as visualized. Bones/joints: Degenerative disease of the visualized spine. No visible acute osseous abnormality. Soft tissues: Evidence of a recent midline laparotomy. Small incisional fluid collection in the infraumbilical midline incision measuring 4.4 cm by 1.5 cm x 3 cm. This fluid collection does contain emphysematous pockets. Potential incisional seroma versus abscess. This fluid collection lies just ventral to the linea alba. Stable 2 small foci of subcutaneous nodularity one at the supper pubic level of the 2nd in the left inguinal region stable since 07/21/2019. Clinical significance indeterminate. CT/CT abdomen pelvis w con* [id number] IMPRESSION: 1. Status post gastroplasty with marked gastric distention proximal to the anastomotic sutures. Concern for a partial high-grade gastric outlet obstruction. 2. Anterior left upper quadrant intraperitoneal loculated fluid collection measuring 14.9 cm x 5.5 cm x 10.7 cm. Potential abscess. 3. Second unorganized potential fluid collection within the intraperitoneal mesenteric space just distal to the loculated fluid collection dimensions approximately 5.5 cm x 2.5 cm x 4.0 cm. Potential unorganized seroma, hematoma, or even abscess. 4. Evidence of a recent midline laparotomy. Small incisional fluid collection in the infraumbilical midline incision measuring 4.4 cm by 1.5 cm x 3 cm. This fluid collection does contain emphysematous pockets. Potential incisional seroma versus abscess. 5. Focal reactive mesenteritis/panniculitis. 6. Other nonurgent and nonemergent findings as detailed in text above. Radiation Dose CTDIVOL = (mGy): DLP = 1905.13 (mGy-cm)
[2019-12-29 17:39] LABS: Basophils % 0.4 %; Eosinophils # 0.2 10^3/uL (0.0-0.8); Eosinophils % 1.4 %; Hematocrit 33.6 % (42.0-52.0); Hemoglobin 9.9 g/dL (11.7-16.6); Lymphocytes # 1.6 10^3/uL (0.8-4.8); Lymphocytes % 15.3 %; Mean Corpuscular HGB Conc 29.5 g/dL (30.0-36.0); Mean Corpuscular Hemoglobin 21.9 pg (28.0-34.0); Mean Corpuscular Volume 74.3 fL (80-94); Mean Platelet Volume 11.3 fL (7.4-10.4); Monocytes # 1.1 10^3/uL (0.2-0.9); Monocytes % 10.1 %; Neutrophils # 7.71 10^3/uL (1.8-7.7); Neutrophils % 72.3 %; Nucleated Red Blood Cells % 0 %; Platelet Count 531 10^3/cmm (130-400); Red Blood Count 4.52 10^6/uL (4.1-5.3); Red Cell Distribution Width 22.8 % (12.1-15.1); White Blood Count 10.7 10^3/uL (4.0-10.0)
[2019-12-29 18:01] LABS: Alanine Aminotransferase 7 U/L (0-41); Albumin Level 3.6 g/dL (3.5-5.2); Alkaline Phosphatase 70 IU/L (40-130); Anion Gap 19.1 (5-19); Aspartate Amino Transferase 16 U/L (0-40); Blood Urea Nitrogen 11 mg/dL (6-20); Calcium 9.1 mg/dL (8.5-10.5); Carbon Dioxide 24 mmol/L (22-29); Chloride 96 mmol/L (98-107); Globulin 5.3 g/dL (1.3-4.6); Glomerular Filtration Rate 117.5 mL/min (90-130); Glucose 121 mg/dL (65-115); Lipase 22 U/L (13-60); Osmolality Calculated 277 mOsm/kg (285-295); Potassium 4.1 mmol/L (3.5-5.1); Sodium 135 mmol/L (136-145); Total Bilirubin 0.2 mg/dL (0.15-1.2); Total Protein 8.9 g/dL (6.6-8.7)
[2019-12-29] MEDS: iohexol 300 mg/mL 100 mL Btl IV (18:03)
[2019-12-29] MEDS: piperacillin-tazobactam 3.375 GM in sodium chloride 0.9% (plus) 50 ML IV (18:33)
--- NOTE | 2019-12-29 18:49 | XRR_ITS ---
PROCEDURE INFORMATION: Exam: XR Chest, 1 View Exam date and time: 12/29/2019 8:03 PM Age: 54 years old Clinical indication: Device placement; Ng tube; Prior surgery; Surgery date: 6+ months; Surgery type: Heart stents; Patient HX: Abd pain; Nausea vomiting; Constipation; Additional info: Ng tube placement TECHNIQUE: Imaging protocol: XR of the chest Views: 1 view. COMPARISON: CR XR chest 1V portable [id number] 08/08/2019 6:13 PM FINDINGS: Tubes, catheters and devices: There is an enteric tube present with the tip in the body of the stomach. Lungs: There is left basilar atelectasis. Pleural space: No pleural effusion or pneumothorax. Heart/Mediastinum: The cardiac silhouette appears enlarged, likely accentuated by a left epicardial fat pad. The mediastinal contours are normal. Bones/joints: No acute osseous abnormality XR/XR chest 1V portable [id number] IMPRESSION: Enteric tube tip in the stomach.
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
--- NOTE | 2019-12-29 23:07 | PC.NURSE ---
Report given to Elzbieta on [facility]
--- NOTE | 2019-12-29 23:51 | PC.NURSE ---
Abd incision with mostly healing x4 open areas with drainage pt reports dr able to stick qtip into upper area of incision. Drainage small amount with light yellow in color, slight redness at sight.
--- NOTE | 2019-12-29 23:57 | PC.NURSE ---
brought to floor with iv from er
[2019-12-30] VITALS (8 sets, daily range): BP systolic 118–131; BP diastolic 74–83; PULSE 79–84; RESP 16–18; TEMP 36.5–36.7; O2SAT 90–93
[2019-12-30] MEDS: sodium chlor 0.9% + KCl 20 mEq 20 MEQ/1,000 ML BAG 100 MEQ IV (00:04)
--- NOTE | 2019-12-30 00:33 | PC.PHAR ---
Pharmacokinetic dosing service Date: 12/30/19 Time: 29 Objective: Patient: INOCENCIA ZAMORA Floor: 273-1 Age: 54 yo Serum creatinine: 0.7 mg/dL Height: 67.0 Inches Weight (kg): 117.934 Diagnosis: Relevant medical/social history: Cultures and sensitivities: Other labs: Assessment: IBW (kg): 66.10 Dosing wt(kg): 117.934 Estimated Creatinine clearance (ml/min): 112.8 CRCL method: Cockcroft and Gault using ibw(default). Drug selected: Vancomycin Loading dose (mg): 0 Vd (liters): 106.1 (factor used: 0.9 L/kg) Floyd (hr-1): 0.098 Half life (hrs): 7.07 Recommended dose: 2000 mg Interval: 12 hrs Infusion time (hrs): 1.5 Predicted peak (mcg/mL): 25.4 Predicted trough (mcg/mL): 9.08 Total body weight is being used for vancomycin dosing. Renal function is stable [ ] /unstable [ ] Recommendations: Give Vancomycin 2000 mg q 12 hrs with an expected Cpeak of 25.4 mcg/ml and an expected Ctrough of 9.08 mcg/ml Renal dosing of other antibiotics (review renal dosing of other medications and list guidelines here): Thank you for the consult, will continue to follow. Signature: Jenny Connor [facility]
[2019-12-30] MEDS: morphine 4 mg/mL SDV 1 mL IVP ×2 (02:21→10:14)
[2019-12-30 04:01] LABS: Basophils # 0.1 10^3/uL (0.0-0.1); Basophils % 0.8 %; Eosinophils # 0.3 10^3/uL (0.0-0.8); Eosinophils % 4.3 %; Hematocrit 31.3 % (42.0-52.0); Hemoglobin 8.8 g/dL (11.7-16.6); Lymphocytes # 1.8 10^3/uL (0.8-4.8); Lymphocytes % 22.5 %; Mean Corpuscular HGB Conc 28.1 g/dL (30.0-36.0); Mean Corpuscular Hemoglobin 21.8 pg (28.0-34.0); Mean Corpuscular Volume 77.7 fL (80-94); Mean Platelet Volume 11.8 fL (7.4-10.4); Monocytes # 1.1 10^3/uL (0.2-0.9); Monocytes % 13.7 %; Neutrophils # 4.58 10^3/uL (1.8-7.7); Neutrophils % 58.1 %; Nucleated Red Blood Cells % 0 %; Platelet Count 468 10^3/cmm (130-400); Red Blood Count 4.03 10^6/uL (4.1-5.3); Red Cell Distribution Width 23.1 % (12.1-15.1); White Blood Count 7.9 10^3/uL (4.0-10.0)
[2019-12-30 04:27] LABS: Anion Gap 15.7 (5-19); Blood Urea Nitrogen 10 mg/dL (6-20); Calcium 8.4 mg/dL (8.5-10.5); Carbon Dioxide 25 mmol/L (22-29); Chloride 101 mmol/L (98-107); Glomerular Filtration Rate 117.5 mL/min (90-130); Glucose 109 mg/dL (65-115); Osmolality Calculated 283 mOsm/kg (285-295); Potassium 3.7 mmol/L (3.5-5.1); Sodium 138 mmol/L (136-145)
[2019-12-30] MEDS: piperacillin-tazobactam 3.375 GM in sodium chloride 0.9% (plus) 50 ML IV (04:37)
[2019-12-30 06:47] LABS: Glucose Point of Care 105 mg/dL (70-110)
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
[2019-12-30 11:01] LABS: Glucose Point of Care 103 mg/dL (70-110)
--- NOTE | 2019-12-30 11:08 | PC.RESP ---
Pulmonary Rehab information sent to patient.
--- NOTE | 2019-12-30 13:17 | PC.CHAP ---
Pastoral Care Encounter/Spiritual Assessment Type of Contact [] Declined air quality instrument specialist visit [] Patient/Family/Request visit [] Outpatient visit [] Follow-up visit [] Physician referral [] Code/Alert [X] Routine visit [] Staff referral [] Actively dying [] Patient sleeping [] Family support [] [] Out of room [] Palliative care [] [] Receiving care in room [] Pre-surgical visit [] Trauma [] Long length of stay [] ICU visit [] Other: Relational/Emotional Strength [] Patient feels connected with others/family/visitors/staff [] Distress [] Loneliness/isolation [] Abandonment Spirituality of Patient [] Person of Marielos [] Attends [employer] of their Marielos [X] Believes in Prayer [] Reads Bible or Restorationist materials [] There are Spiritual issues to be addressed Forge Tender Interventions [X] Prayer [X] Active listening [X] Non-anxious presence [X] Spiritual/emotional support [] Crisis/trauma care [] Spiritual counseling [] Bereavement support [] Provided bereavement packet [] Provided Bible/devotional materials [] Provided toy/stuffed animal, coloring book to patient or family member [] Provided Communion [] Anointing/Alpha [] Salvation [X] Completed spiritual assessment [] Other: Impact on Illness or Injury [] Angry [X] Fearful [X] Anxious [] Often cries [] Exhaustion [] Unable to work [] Unable to attend holiness [] Unable to walk/stand [] Unable to read [] Unable to drive [] Unable to eat/drink [] Unable to sleep [X] Unable to be with family [] Patient intubated [] Other: Summary PT IS OLDER GENTLEMAN SOMEWHAT ANXIOUS ABOUT HIS HEALTH AND NOT SURE WHAT IS HAPPENING. HE IS BEING TRANSFERRED TO ANOTHER MEDICAL CENTER FOR FURTHER EVALUATION AND TREATMENT AND WILL BE FARTHER AWAY FROM HIS FAMILY AND FAMILIAR SURROUNDINGS. HE IS FRIGHTENED. Time spent with patient
--- NOTE | 2019-12-30 13:46 | P.TS_ITS ---
Transfer Summary Providers Date of Admission: 12/29/19 21:31 Date of Discharge: 12/30/19 Attending Provider at Admission: Lorie Pham MD Attending Provider at Transfer: Ele Meza MD Consults: Surgery, Dr. Morris Primary Care Provider: Roxanna Murphy Anticipated Date of Transfer: Anticipated date of transfer: 12/30/19 Receiving Facility & Provider: Receiving Provider: [Dr. Justen Gardiner] Receiving facility: [[place], [place]] Diagnoses at Discharge Discharge Diagnosis (1) Partial gastric outlet obstruction: Status: Acute Problem details: -NGT placed with initial output of 400 mL; minimal output thereafter -noted on imaging, marked gastric distention noted proximal to the anastomotic sutures, possible high-grade obstruction (2) Abdominal fluid collection: Status: Acute Problem details: -noted on imaging, loculated fluid collection in anterior LUQ, intraperitoneal mesenteric space, small incisional fluid collection -VSS, afebrile -leukocytosis resolved -covered with IV Zosyn, Vanc -lactic acid wnl -NPO -pain control, antiemetics PRN Other Information Additional DC diagnoses/information: -Recent diagnosis of colon cancer status post partial colectomy on 12/06/2019 -Status post partial gastrectomy on 12/05 with primary anastomosis -Multifactorial chronic anemia secondary to iron deficiency, chronic blood loss from colon cancer: Hemoglobin stable -IDDM type II -HTN; VSS -COPD; no acute exacerbation -Depression; on Fluoxetine -Morbid obesity: BMI-41 kg/m2 Reason for Visit Reason for Visit: abdominal pain and dizziness Hospital Course Hospital Course: Patient was admitted to the medical surgical floor after having been found to have partial gastric outlet obstruction and postop intra- abdominal abscesses on imaging. He had recently had a partial gastrectomy done by Dr. Gardiner at [facility] in [place] on 12/06/19 and seemed to be doing well postop per my conversation earlier this morning with Dr. Gardiner. Attempt had been made in the ER to transfer the patient directly to [facility] but this was hindered by lack of bed availability. I received a call earlier this morning from Dr. Gardiner stating that he would initiate transfer to [facility]. In the interim patient had had an NG tube placed and had been started on broad-spectrum IV antibiotics in addition to IV fluid hydration, pain control and antiemetics as needed. Patient has been kept n.p.o. during his hospital stay. Vital signs have been stable, he has been afebrile and on room air. Leukocytosis has resolved, hemoglobin is stable, electrolytes and renal function are normal. He had about 400 mL output from NG tube following placement but minimal output thereafter. Bed availability has been confirmed and transport arranged, patient has been transferred to [facility] this afternoon. Physical Exam Narrative: EXAM NARRATIVE: -patient discharged prior to examination by provider TS Data Data Completed and Pending: Completed Studies During Hospitalization Category Date Time Status CT abdomen pelvis w con* [id number] Urge nt Cat Scan 12/29/19 17:32 Completed XR chest 1V billy ble [id number] Stat Exams 12/29/19 18:49 Completed Pending at discharge Category Date Time Status Wound Culture and Gram Stain Routin e Lab 12/29/19 20:25 Results Labs from last 24 hours 12/30/19 12/30/19 12/30/19 10:41 06:14 03:40 WBC RBC Hgb Hct MCV MCH MCHC RDW Plt Count MPV Neut % (Auto) Lymph % (Auto) [place] % (Auto) Eos % (Auto) Baso % (Auto) Neut # (Auto) Lymph # (Auto) [place] # (Auto) Eos # (Auto) Baso # (Auto) Nucleated RBC % (a uto) Nucleated RBCs # Sodium 138 Potassium 3.7 Chloride 101 Carbon Dioxide 25 Anion Gap 15.7 BUN 10 Creatinine 0.7 GFR Calculation 117.5 Glucose 109 POC Glucose 103 105 Calculated Osmolal ity 283 L Lactic Acid Calcium 8.4 L Total Bilirubin AST ALT Alkaline Phosphata se Total Protein Albumin Globulin Lipase 12/30/19 12/29/19 12/29/19 03:40 18:30 17:32 WBC 7.9 RBC 4.03 L Hgb 8.8 L Hct 31.3 L MCV 77.7 L MCH 21.8 L MCHC 28.1 L RDW 23.1 H Plt Count 468 H MPV 11.8 H Neut % (Auto) 58.1 Lymph % (Auto) 22.5 [place] % (Auto) 13.7 Eos % (Auto) 4.3 Baso % (Auto) 0.8 Neut # (Auto) 4.58 Lymph # (Auto) 1.8 [place] # (Auto) 1.1 H Eos # (Auto) 0.3 Baso # (Auto) 0.1 Nucleated RBC % (a uto) 0 Nucleated RBCs # 0.0 Sodium 135 L Potassium 4.1 Chloride 96 L Carbon Dioxide 24 Anion Gap 19.1 H BUN 11 Creatinine 0.7 GFR Calculation 117.5 Glucose 121 H POC Glucose Calculated Osmolal ity 277 L Lactic Acid 1.0 Calcium 9.1 Total Bilirubin 0.2 AST 16 ALT 7 Alkaline Phosphata se 70 Total Protein 8.9 H Albumin 3.6 Globulin 5.3 H Lipase 22 12/29/19 17:32 WBC 10.7 H RBC 4.52 Hgb 9.9 L Hct 33.6 L MCV 74.3 L MCH 21.9 L MCHC 29.5 L RDW 22.8 H Plt Count 531 H MPV 11.3 H Neut % (Auto) 72.3 Lymph % (Auto) 15.3 [place] % (Auto) 10.1 Eos % (Auto) 1.4 Baso % (Auto) 0.4 Neut # (Auto) 7.71 H Lymph # (Auto) 1.6 [place] # (Auto) 1.1 H Eos # (Auto) 0.2 Baso # (Auto) 0.0 Nucleated RBC % (a uto) 0 Nucleated RBCs # 0.0 Sodium Potassium Chloride Carbon Dioxide Anion Gap BUN Creatinine GFR Calculation Glucose POC Glucose Calculated Osmolal ity Lactic Acid Calcium Total Bilirubin AST ALT Alkaline Phosphata se Total Protein Albumin Globulin Lipase Vitals: Last Vital Signs Temp 97.7 F 12/30/19 13:25 Pulse 79 12/30/19 13:25 Resp 17 12/30/19 13:25 BP 118/74 12/30/19 13:25 Pulse Ox 92 12/30/19 13:25 TS Medications Medications Home Medications tiotropium bromide [Spiriva Respimat] 2 puff INHALATION DAILY #4 gm 07/22/19 [Rx Confirmed 12/29/19] cholecalciferol (vitamin D3) [Vitamin D3] 5,000 unit PO DAILY 08/08/19 [History Confirmed 12/29/19] vitamin W50-xkgcx acid 1 tab PO DAILY 08/08/19 [History Confirmed 12/29/19] Admelog SoloStar U-100 Insulin See Rx Instructions .ROUTE .COMPLEX 11/21/19 [History Confirmed 12/29/19] fluoxetine 20 mg PO DAILY 11/21/19 [History Confirmed 12/29/19] hydrochlorothiazide 25 mg PO DAILY 11/21/19 [History Confirmed 12/29/19] hydrocodone-acetaminophen 1 tab PO Q6H PRN 11/21/19 [History Confirmed 12/29/19] insulin glargine [Lantus Solostar U-100 Insulin] 44 unit SUBCUT DAILY 11/21/19 [History Confirmed 12/29/19] albuterol sulfate 2 inh INHALATION Q4H PRN 12/29/19 [History Confirmed 12/29/19] exenatide microspheres [Bydureon] 2 mg SUBCUT Q7D 12/29/19 [History Confirmed 12/29/19] metformin 1,000 mg PO BID 12/29/19 [History Confirmed 12/29/19] metoclopramide HCl 10 mg PO QID PRN 12/29/19 [History Confirmed 12/29/19] multivitamin [Multiple Vitamins] 1 tab PO DAILY 12/29/19 [History Confirmed 12/29/19] oxycodone 5 mg PO Q6H PRN 12/29/19 [History Confirmed 12/29/19] Discharge Plan Discharge Patient Disposition: Xfer Other Condition: Stable Prescriptions: No Action cholecalciferol (vitamin D3) [Vitamin D3] 125 mcg (5,000 unit) Tablet 5,000 unit PO DAILY RF: 0 vitamin R89-rhwpe acid 500-400 mcg Tablet 1 tab PO DAILY RF: 0 Multiple Vitamins Tablet 1 tab PO DAILY RF: 0 metformin 500 mg tablet 1,000 mg PO BID RF: 0 metoclopramide HCl 10 mg tablet 10 mg PO QID PRN (Reason: Nausea) RF: 0 oxycodone 5 mg tablet 5 mg PO Q6H PRN (Reason: Pain) RF: 0 Bydureon 2 mg/0.65 mL pen injector 2 mg SUBCUT Q7D RF: 0 albuterol sulfate 90 mcg/actuation HFA aerosol inhaler 2 inh INHALATION Q4H PRN (Reason: shortness of breath or wheezing) RF: 0 Spiriva Respimat 1.25 mcg/actuation mist 2 puff INHALATION DAILY Qty: 4 RF: 0 Admelog SoloStar U-100 Insulin See Rx Instructions .ROUTE .COMPLEX RF: 0 hydrocodone-acetaminophen 7.5-325 mg tablet 1 tab PO Q6H PRN (Reason: Pain) RF: 0 hydrochlorothiazide 25 mg tablet 25 mg PO DAILY RF: 0 fluoxetine 20 mg capsule 20 mg PO DAILY RF: 0 Lantus Solostar U-100 Insulin 100 unit/mL (3 mL) Insulin Pen 44 unit SUBCUT DAILY RF: 0 Discharge Orders: Discharge Order (Routine); Ordered 12/30/19 Ordered By: Ele Meza Referrals: Roxanna Murphy, QUALITY IMPROVEMENT COORDINATOR-C [Primary Care Provider] - (Called clinic and informed them of transfer to [facility].) Discharge Date/Time: 12/30/19 13:26 Transfer Attestations Time Spent in Transfer Care*: greater than 30 min Specific Discharge Activities: Specific discharge activities: discussing with pcp/other providers (Dr. Gardiner), discussing with case resource manager/social workers/dc planners, documenting/other paperwork and evaluating patient/reviewing data Quality Metrics Clinical Quality Measures: During this hospital stay, did patient experience: None Coding Level of Care Code Acute Dethistler Operator for [facility] Fwd Diagnoses Partial gastric outlet obstruction K31.1 Abdominal fluid collection R18.8
== END 2019-12-30 13:26 | disposition short-term general hospital (02) | DRG 381 ==
LOC: ER 22:14 → MEDSURG 22:33
PROVIDERS: Emergency Medicine; Admitting Provider Hospitalist; Emergency Provider Emergency Medicine; PCP Nurse Practitioner Family; Visit Provider Family Medicine
DX: K31.1 Adult hypertrophic pyloric stenosis (principal); C18.4 Malignant neoplasm of transverse colon; C77.2 Secondary and unspecified malignant neoplasm of intra-abdominal lymph nodes; T81.43XA Infection following a procedure, organ and space surgical site, initial encounter; Z68.41 Body mass index [BMI] 40.0-44.9, adult; J44.9 Chronic obstructive pulmonary disease, unspecified; F32.9 Major depressive disorder, single episode, unspecified; E11.9 Type 2 diabetes mellitus without complications; I10 Essential (primary) hypertension; Z86.711 Personal history of pulmonary embolism; Z95.828 Presence of other vascular implants and grafts; Z90.49 Acquired absence of other specified parts of digestive tract; Z87.891 Personal history of nicotine dependence; F10.10 Alcohol abuse, uncomplicated; D50.0 Iron deficiency anemia secondary to blood loss (chronic); E66.01 Morbid (severe) obesity due to excess calories; Z79.891 Long term (current) use of opiate analgesic; Z79.4 Long term (current) use of insulin
CPT/HCPCS: 12345; 36415; 36416; 71045; 74177; 80048; 80053; 82962; 83605; 83690; 85025; 87070; 87077; 87186; 87205; 96375; 99283; J2270; J2405; J2543; J3370; J7030; J7040; Q9967

== ENCOUNTER 2020-04-30 13:09 | Outpatient (CLI) | payer MEDICAID, SELFPAY ==
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
== END 2020-04-30 13:10 | disposition home or self-care (01) ==
LOC: ONCMED 13:13
PROVIDERS: PCP Nurse Practitioner Family; Referring Provider Colon & Rectal Surgery; Visit Provider Internal Medicine Hematology & Oncology
DX: C18.4 Malignant neoplasm of transverse colon (principal); C77.2 Secondary and unspecified malignant neoplasm of intra-abdominal lymph nodes; E66.9 Obesity, unspecified; I10 Essential (primary) hypertension; Z90.49 Acquired absence of other specified parts of digestive tract; Z95.5 Presence of coronary angioplasty implant and graft; Z87.828 Personal history of other (healed) physical injury and trauma
CPT/HCPCS: 99205

== ENCOUNTER 2020-06-21 10:55 | Outpatient (CLI) | payer MEDICAID, SELFPAY ==
--- NOTE | 2020-06-21 11:05 | CT_ITS ---
WS: [id number] CT CHEST TECHNIQUE: Contrast enhanced CT of the chest with coronal and sagittal reformatted images. CLINICAL INFORMATION: ABNORMAL FINDING ON IMAGING COMPARISON: CTA chest July 21, 2019 DLP: 1102.[address] scans at [facility] use at least one of these dose optimization techniques: automat ed exposure control; mA and/or kV adjustment per patient size (includes targeted exams where dose is matched to clinical indication); or iterative reconstruction. FINDINGS: Mild chronic emphysematous changes. No acute pulmonary infiltrates. No focal consolidation or pleural fluid. Subsegmental atelectasis in the lingula and left lower lobe. Previously described opacity lef t lower lobe has improved and nearly resolved. Tiny 4 mm noncalcified nodule right lower lobe is unch anged. Normal thyroid gland. Aortic calcification. No mediastinal or hilar lymphadenopathy. No axillary lymp hadenopathy. Adrenal glands are normal. Prior postoperative changes gastroplasty. CT/CT chest w con* [id number] IMPRESSION: 1. Tiny noncalcified nodule left lower lobe measuring 4 mm. Recommend 12 month follow-up. This appears stable from previous. 2. Previously described opacity in the left lower lobe has essentially resolve d. Residual subsegmental atelectasis. 3. No other suspicious pulmonary opacities. 4. No mediastinal or hilar lymphadenopathy.
[2020-06-21] MEDS: iohexol 300 mg/mL 100 mL Btl IV (11:53)
== END 2020-06-21 10:56 | disposition home or self-care (01) ==
LOC: RADWPI 10:56
PROVIDERS: PCP Nurse Practitioner Family; Visit Provider Nurse Practitioner Family
DX: R91.8 Other nonspecific abnormal finding of lung field (principal); J98.11 Atelectasis
CPT/HCPCS: 71260; Q9967

== ENCOUNTER 2021-12-04 14:10 | Outpatient (CLI) | payer MEDICAID, SELFPAY ==
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
[2021-12-04] MEDS: iohexol 350 mg/mL 100 mL Btl IV (14:45)
== END 2021-12-04 14:11 | disposition home or self-care (01) ==
PROVIDERS: PCP Nurse Practitioner Family; Visit Provider Nurse Practitioner Family
DX: R91.1 Solitary pulmonary nodule (principal); N62 Hypertrophy of breast
CPT/HCPCS: 71260

== ENCOUNTER → 2022-02-17 11:18 | Outpatient (BNVA) | payer MEDICAID, SELFPAY | PROVIDERS: PCP Nurse Practitioner Family; Referring Provider Registered Nurse; Visit Provider Student in an Organized Health Care Education/Training Program | DX: M17.0 Bilateral primary osteoarthritis of knee (principal) | CPT/HCPCS: 73562 ×2; 73560; 73565; 99204 ==

== ENCOUNTER → 2022-03-24 06:00 | Day surgery (SDC) | payer MEDICAID, SELFPAY ==
[2022-03-24 11:07] VITALS: BMI 43.8
[2022-03-24 12:06] LABS: Anion Gap 14.8 (5-19); Blood Urea Nitrogen 7 mg/dL (6-20); Calcium 9.4 mg/dL (8.5-10.5); Carbon Dioxide 25 mmol/L (22-29); Chloride 95 mmol/L (98-107); Creatinine Clr Calc Pharmacy 150.7707; Glomerular Filtration Rate 116.7 mL/min (90-130); Glucose 198 mg/dL (65-115); Osmolality Calculated 276 mOsm/kg (285-295); Potassium 3.8 mmol/L (3.5-5.1); Sodium 131 mmol/L (136-145)
== END ==
PROVIDERS: Anesthesiology; PCP Nurse Practitioner Family; Visit Provider Student in an Organized Health Care Education/Training Program
DX: R91.1 Solitary pulmonary nodule (principal)
CPT/HCPCS: 80048

== ENCOUNTER 2022-04-18 11:10 | Outpatient (CLI) | payer MEDICAID, SELFPAY ==
--- NOTE | 2022-04-18 17:15 | CT_ITS ---
WS: [id number] CT RIGHT KNEE, NONCONTRAST TECHNIQUE: Noncontrast CT of the RIGHT knee to include the RIGHT hip and ankle MACHO protocol. CLINICAL INFORMATION: CHRONIC PAIN OF LEFT KNEE COMPARISON: None. DLP: 940.[address] scans at [facility] use at least one of these dose optimization techniques: automated e xposure control; mA and/or kV adjustment per patient size (includes targeted exams where dose is matc hed to clinical indication); or iterative reconstruction. FINDINGS: Advanced osteoarthritis RIGHT knee with hypertrophic changes along the joint line. Advanced degenerat bran narrowing medial joint compartment with subchondral sclerosis. Hypertrophic patella. Advanced deg enerative changes at the patellofemoral articulation. Mild degenerative narrowing both hips. Tiny joint effusion. Mild soft tissue edema about the knee. Va scular calcification. A few prominent inguinal lymph nodes nonspecific but likely reactive Soft tissue induration in the anterior lower pelvis soft tissues may represent a small sebaceous cyst measuring 1.7 x 1.5 CM. This is unchanged since December 29, 2019 CT/CT knee RT MACHO IMPRESSION: Images obtained for preoperative purposes.
== END 2022-04-18 11:11 | disposition home or self-care (01) ==
LOC: RAD 11:10
PROVIDERS: PCP Nurse Practitioner Family; Visit Provider Student in an Organized Health Care Education/Training Program
DX: M25.562 Pain in left knee (principal); G89.29 Other chronic pain; Z01.818 Encounter for other preprocedural examination
CPT/HCPCS: 73700

== ENCOUNTER → 2022-04-23 06:00 | Day surgery (SDC) | payer MEDICAID, SELFPAY ==
[2022-04-21 08:56] VITALS: BMI 43.8
--- NOTE | 2022-04-21 09:26 | ECG_ITS ---
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 Measurements Intervals [place] Rate: 94 P: 33 ME: 160 QRS: 49 QRSD: 79 T: 62 QT: 334 QTc: 418 Interpretive Statements SINUS RHYTHM INDETERMINATE AXIS LOW QRS VOLTAGE IN PRECORDIAL LEADS [QRS DEFLECTION < 1.0 mV IN CHEST LEADS] PATTERN CONSISTENT WITH PULMONARY DISEASE Compared to ECG 11/21/2019 21:49:16 Indeterminate axis now present Low QRS voltage now present ST (T wave) deviation no longer present Electronically Signed On 04-21-2022 19:04:10 VICE PRESIDENT OF MARKETING by Jass Villarreal M.D. [id number]
[2022-04-21 09:55] LABS: Add Urine Microscopic? NO; Charge for UA Resulting for Rev
[2022-04-21 10:02] LABS: Basophils # 0.1 10^3/uL (0.0-0.1); Basophils % 0.8 %; Eosinophils # 0.1 10^3/uL (0.0-0.8); Hematocrit 45.7 % (42.0-52.0); Hemoglobin 15.1 g/dL (11.7-16.6); Lymphocytes # 1.4 10^3/uL (0.8-4.8); Lymphocytes % 16.1 %; Mean Corpuscular Hemoglobin 30.9 pg (28.0-34.0); Mean Corpuscular Volume 93.6 fl (80-94); Mean Platelet Volume 12.7 fL (7.4-10.4); Monocytes # 0.5 10^3/uL (0.2-0.9); Monocytes % 6.5 %; Neutrophils # 6.27 10^3/uL (1.8-7.7); Neutrophils % 74.9 %; Nucleated Red Blood Cells % 0 %; Platelet Count 300 10^3/cmm (130-400); Red Blood Count 4.88 10^6/uL (4.1-5.3); Red Cell Distribution Width 13.2 % (12.1-15.1); White Blood Count 8.4 10^3/uL (4.0-10.0)
[2022-04-21 10:08] LABS: Bilirubin Urine Neg (Negative); Blood Urine Neg (Negative); Glucose Urine UA 4+ (Normal); Ketones Urine 1+ (Negative); Leukocyte Esterase Urine Negative (Negative); Nitrate Urine Negative (Negative); Protein Urine Neg (Negative); Urine Appearance Clear (CLEAR); Urine Color Yellow (Yellow); Urobilinogen Urine Norm (Negative); pH Urine 5 (5-7)
[2022-04-21 10:24] LABS: Alanine Aminotransferase 20 U/L (0-41); Albumin Level 3.8 g/dL (3.5-5.2); Alkaline Phosphatase 131 U/L (40-130); Anion Gap 14.9 (5-19); Aspartate Amino Transferase 13 U/L (0-40); Blood Urea Nitrogen 8 mg/dL (6-20); Calcium 9.5 mg/dL (8.5-10.5); Carbon Dioxide 25 mmol/L (22-29); Chloride 87 mmol/L (98-107); Creatinine Clr Calc Pharmacy 150.7707; Globulin 4.7 g/dL (1.3-4.6); Glomerular Filtration Rate 116.7 mL/min (90-130); Osmolality Calculated 287 mOsm/kg (285-295); Potassium 4.9 mmol/L (3.5-5.1); Sodium 122 mmol/L (136-145); Total Bilirubin 0.4 mg/dL (0.15-1.2); Total Protein 8.5 g/dL (6.6-8.7)
[2022-04-21 10:27] LABS: Glucose 721 mg/dL (65-115)
[2022-04-21 10:56] LABS: Estmated Average Glucose 246; Hemoglobin A1C 10.2 % (4.0-6.0)
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
--- NOTE | 2022-04-22 06:12 | SUR.PREOP ---
patients glucose in cmp reported by lab as 721. critical value called to dr hilton. he said patient will probably be cancelled for surgery this week and to call the patient to let him know of the blood glucose and to tell him he needs to be seen by his pcp. I relayed this to the patient. I also called his pcp office and let them know about the lab value and the need for him to be seen JESSICA. They stated they would call him with an appointment.
== END ==
LOC: OR 06-14 12:08
PROVIDERS: PCP Nurse Practitioner Family; Visit Provider Student in an Organized Health Care Education/Training Program
DX: Z01.818 Encounter for other preprocedural examination (principal)
CPT/HCPCS: 36415; 80053; 81003; 83036; 85025; 86850; 86900; 93005

== ENCOUNTER → 2022-07-24 10:03 | Outpatient (BNVA) | payer MEDICAID, SELFPAY | PROVIDERS: PCP Registered Nurse; Visit Provider Student in an Organized Health Care Education/Training Program | DX: M17.0 Bilateral primary osteoarthritis of knee (principal); E66.9 Obesity, unspecified; Z68.42 Body mass index [BMI] 45.0-49.9, adult | CPT/HCPCS: 99213 ==

== ENCOUNTER → 2022-12-25 15:00 | Outpatient (BNVA) | payer MEDICAID, SELFPAY | PROVIDERS: PCP Registered Nurse; Visit Provider Student in an Organized Health Care Education/Training Program | DX: Z01.818 Encounter for other preprocedural examination (principal); M17.10 Unilateral primary osteoarthritis, unspecified knee | CPT/HCPCS: 99214 ==

== ENCOUNTER 2023-01-12 14:57 | Outpatient (CLI) | payer MEDICAID, SELFPAY ==
--- NOTE | 2023-01-12 15:00 | CT_ITS ---
WS: [id number] CT RIGHT knee, noncontrast HISTORY: RIGHT TOTAL KNEE ARTHROPLASTY TECHNIQUE: Protocol for [facility] total knee replacement has been obtained. This includes axial imaging th rough the RIGHT hip, RIGHT knee and RIGHT ankle. DLP: 944.38 mGy.cm COMPARISON: 04/18/2022 Very minimal narrowing of the hips. No osteopenia. No fracture. Mild atherosclerosis iliac arteries. There is a small stable 1.7 cm mass in the soft tissues anterior to the pubic bones. This may be a sm all sebaceous cyst. There are few additional small benign inguinal calcifications. Moderate narrowing of the medial compartment. Mild narrowing of the lateral patellofemoral compartmen ts. Slight lateral subluxation of the patella. Vascular calcifications in the popliteal artery. Very small effusion at the knee. Moderate-sized Mccloud's cyst contains calcifications. Negative RIGHT ankle. IMPRESSION: CT imaging provided for [facility] robotic total knee replacement. Moderate size Mccloud's cyst with calcified loose bodies. Small RIGHT knee joint effusion
== END 2023-01-12 14:58 | disposition home or self-care (01) ==
PROVIDERS: PCP Registered Nurse; Visit Provider Student in an Organized Health Care Education/Training Program
DX: Z01.818 Encounter for other preprocedural examination (principal); M17.11 Unilateral primary osteoarthritis, right knee; M71.21 Synovial cyst of popliteal space [Baker], right knee; M25.461 Effusion, right knee
CPT/HCPCS: 73700

== ENCOUNTER → 2023-01-16 12:32 | Outpatient (BNVA) | payer MEDICAID, SELFPAY | PROVIDERS: PCP Registered Nurse; Visit Provider Family Medicine | DX: Z01.818 Encounter for other preprocedural examination (principal) | CPT/HCPCS: 80053; 81000; 83036; 85025 ==

== ENCOUNTER → 2023-02-03 15:18 | Outpatient (BNVA) | payer MEDICAID, SELFPAY | PROVIDERS: PCP Registered Nurse; Visit Provider Student in an Organized Health Care Education/Training Program | DX: S42.101A Fracture of unspecified part of scapula, right shoulder, initial encounter for closed fracture; V86.99XA Unspecified occupant of other special all-terrain or other off-road motor vehicle injured in nontraffic accident, initial encounter | CPT/HCPCS: 73010; 99213 ==

== ENCOUNTER → 2023-02-19 14:42 | Outpatient (BNVA) | payer MEDICAID, SELFPAY | PROVIDERS: PCP Registered Nurse; Visit Provider Student in an Organized Health Care Education/Training Program | DX: S42.101A Fracture of unspecified part of scapula, right shoulder, initial encounter for closed fracture (principal); V86.99XA Unspecified occupant of other special all-terrain or other off-road motor vehicle injured in nontraffic accident, initial encounter | CPT/HCPCS: 73010; 99213 ==

== ENCOUNTER → 2023-03-04 10:47 | Outpatient (BNVA) | payer MEDICAID, SELFPAY | PROVIDERS: PCP Registered Nurse; Visit Provider Family Medicine | DX: Z01.818 Encounter for other preprocedural examination (principal) | CPT/HCPCS: 80053; 81000; 85025 ==

== ENCOUNTER 2023-03-09 06:15 | Outpatient (CLI) | payer MEDICAID, SELFPAY ==
--- NOTE | 2023-03-09 06:30 | CT_ITS ---
WS: [id number] CT RIGHT KNEE, NONCONTRAST MACHO TECHNIQUE: Noncontrast CT of the RIGHT knee to include the RIGHT hip and ankle. CLINICAL INFORMATION: M17.11 - Unilateral primary osteoarthritis, right knee COMPARISON: 01/12/2023 DLP: 985.[address] scans at [facility] use at least one of these dose optimization techniques: automated e xposure control; mA and/or kV adjustment per patient size (includes targeted exams where dose is matc hed to clinical indication); or iterative reconstruction. FINDINGS: Moderate to advanced tricompartment arthritis. Mild degenerative narrowing both hips. Degenerative ar thritis sacroiliac joints. Vascular calcification. Hypertrophic patella. Small suprapatellar effusion . Popliteal cyst with calcified loose bodies. This is unchanged compared to previous measuring 3.7 x 1.5 cm. IMPRESSION: Images obtained for preoperative purposes.
== END 2023-03-09 06:16 | disposition home or self-care (01) ==
LOC: RAD 06:16
PROVIDERS: PCP Registered Nurse; Visit Provider Student in an Organized Health Care Education/Training Program
DX: M17.11 Unilateral primary osteoarthritis, right knee (principal)
CPT/HCPCS: 73700

== ENCOUNTER 2023-03-23 12:24 | Observation (INO) | payer MEDICAID, SELFPAY ==
[2023-03-23] VITALS (19 sets, daily range): BP systolic 92–152; BP diastolic 60–113; PULSE 67–82; RESP 15–24; TEMP 36.1–36.7; O2SAT 90–98; BMI 43.8
[2023-03-23] MEDS: ketorolac 30 mg/mL INJ IVP (08:03)
[2023-03-23] MEDS: sodium chloride 0.9% 1,000 ML 30 ML IV (08:04)
[2023-03-23] MEDS: acetaminophen 1,000 MG/100 ML PIGGYBACK 400 MG IV ×3 (08:05→23:47)
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
[2023-03-23 08:39] LABS: Basophils # 0.1 10^3/uL (0.0-0.1); Basophils % 0.6 %; Eosinophils # 0.2 10^3/uL (0.0-0.8); Eosinophils % 2.5 %; Hematocrit 44.3 % (37-53); Lymphocytes # 1.5 10^3/uL (0.8-4.8); Lymphocytes % 15.6 %; Mean Corpuscular Hemoglobin 32.2 pg (27-33); Mean Corpuscular Volume 97.6 fl (82-101); Mean Platelet Volume 11.1 fL (7.4-10.4); Monocytes # 0.7 10^3/uL (0.2-0.9); Monocytes % 6.8 %; Neutrophils # 7.08 10^3/uL (1.8-7.7); Nucleated Red Blood Cells % 0 %; Platelet Count 327 10^3/cmm (157-399); Red Blood Count 4.54 10^6/uL (3.85-5.65); Red Cell Distribution Width 13.1 % (12.1-15.1); White Blood Count 9.57 10^3/uL (3.29-11.43)
[2023-03-23 08:53] LABS: Glucose Point of Care 145 mg/dL (70-110)
[2023-03-23 08:57] LABS: Anion Gap 13.8 (5-19); Blood Urea Nitrogen 8 mg/dL (6-20); Calcium 9.2 mg/dL (8.5-10.5); Carbon Dioxide 26 mmol/L (22-29); Chloride 100 mmol/L (98-107); Creatinine Clr Calc Pharmacy 148.9758; Glomerular Filtration Rate 116.2 mL/min (90-130); Glucose 162 mg/dL (65-115); Osmolality Calculated 284 mOsm/kg (285-295); Potassium 3.8 mmol/L (3.5-5.1); Sodium 136 mmol/L (136-145)
[2023-03-23] MEDS: HYDROmorphone 1 mg/mL INJ 1 mL 0.5 MG IVP ×3 (09:13→22:41)
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
--- NOTE | 2023-03-23 09:21 | W.PM.OPSUD ---
Surgery/Procedure H&P Update DATE OF PROCEDURE: March 23, 2023 DATE H&P PERFORMED: 03/23/23 H&P UPDATE INFORMATION: I have reviewed H&P completed within last 30 days, I have examined patient prior to procedure and No changes to prior documentation PREOP DIAGNOSIS: Right knee degenerative joint disease PRIMARY INDICATION FOR PROCEDURE: Right knee degenerative joint disease PLANNED PROCEDURE: Operation Date: 03/23/23 09:20 Proposed Procedures p Alonso Robot Total Knee Arthroplasty(Right) - Cecil Funk DO
[2023-03-23] MEDS: ceFAZolin 1,000 MG in sodium chloride 0.9% (plus) 50 ML 100 MG IV (09:30)
[2023-03-23] MEDS: ceFAZolin 2,000 MG in sodium chloride 0.9% (plus) 50 ML 100 MG IV ×2 (09:30→17:06)
--- NOTE | 2023-03-23 10:38 | ANES.PROC ---
Anesthesia Procedures Procedure/Date: 03/23/23 Nerve Block ^: Nerve Block 1: Main Anesthesia: spinal anesthesia block Time Out Performed: Yes Consent: requested by attending/covering physician, from patient, risks and benefits reviewed and patient agrees to proceed Nerve block location: adductor canal (right) Anesthesia monitors applied: pulse oximetry, EKG, BP cuff and oxygen Nerve block position: supine Anesthetic Used: ropivicaine 0.5% Amount of anesthesia used (mL): 20 Ultrasound used to: recognize landmarks Nerve Stimulator Used?: No Interscalene/Femoral BLK: 4 stimuplex 21 g needle used for position and inplane approach Injection: neg aspiration of heme Patient Tolerated Procedure: well Complications: none
[2023-03-23] MEDS: vancomycin 1,000 MG SDV 2000 MG XX (11:02)
[2023-03-23] MEDS: ROPivacaine 0.2% Premix 100 mL 200 MG INTRA-ARTI (11:07)
[2023-03-23] MEDS: EPINEPHrine 1 mg/mL INJ XX (11:09)
[2023-03-23] MEDS: tranexamic acid 1,000 mg/10mL SDV 2000 MG XX (11:12)
[2023-03-23] MEDS: ketorolac 30 mg/mL INJ XX (11:14)
--- NOTE | 2023-03-23 11:34 | SUR.PREOP ---
OPEN SORES NOTED ON BUTTOCK, GROIN AND RIGHT ANKLE. MANY HEALED SORES NOTED BILATERAL LEGS.
--- NOTE | 2023-03-23 12:19 | P.BOP_ITS ---
Date of Procedure: [March 23, 2023] Surgeon: [Dr. Good VAUGHN] Tensile Tester(s): [Justen Funk physician associate] Procedure(s) performed: [Right total knee arthroplasty with Alonso robotic assist] Findings of the procedure(s): [Right knee degenerative joint disease] Estimated blood loss: [25 ml] Specimen(s) removed: [n/a] Post-operative diagnosis: [Right knee degenerative joint disease]
--- NOTE | 2023-03-23 12:21 | PM.PACU ---
PACU note Narrative: Patient is a 57-year-old male that just underwent a right total knee arthroplasty. Pt transferred to PACU in stable condition. Dressing is dry and intact. pt is awake and alert. pt can wiggle toes and plantarflex and dorsiflex foot. pt able to perform straight leg raise, Femoral nerve intact. Distal pulses are palpable toes are warm and well-perfused. Cap refill is normal and under 2 seconds. Unable to assess sensation due to residual spinal anesthetic. pain is controlled. Exam: awake Disposition: admitted
--- NOTE | 2023-03-23 12:32 | XRR_ITS ---
PROCEDURE INFORMATION: Exam: XR Right Knee Exam date and time: 03/23/2023 1:35 PM Age: 57 years old Clinical indication: Device placement; Joint replacement hardware; Prior surgery; Surgery date: Post-operative (0-2 days); Surgery type: Right total knee arthroplasty; Additional info: Status post right total knee arthroplasty TECHNIQUE: Imaging protocol: Radiologic exam of the right knee. Views: 3 views. COMPARISON: CT knee RT [facility] 03/09/2023 6:29 AM FINDINGS: Bones/joints: Status post right total knee arthroplasty with intact hardware, adequate alignment and no perihardware lucency or fracture. No acute fracture or dislocation. Mineralization is normal. Lipohemarthrosis, expected. Soft tissues: Regional soft tissue swelling and air are expected in the immediate postoperative setting. XR/XR knee RT 3V* [id number] IMPRESSION: Status post right total knee arthroplasty.
--- NOTE | 2023-03-23 12:33 | PM.OP ---
Operative Report Date of procedure: March 23, 2023 Surgeon: Cecil Funk DO Sole Splitter: Justen Funk PA-C: PA was necessary for assistance in this case and execution of the procedure with skin retraction protection of neurovascular structures as well as to assist with implantation and leg positioning Procedure: Preoperative diagnosis: Right knee degenerative joint disease post-op diagnosis: Same Procedure done: Right total knee arthroplasty, cemented?robotic assisted Alonso Implants: [place] triathlon size 4 femur CR cemented right [place] triathlon size? 5 tibia baseplate cemented [place] triathlon symmetric patella size 33 mm [place] triathlon polyethylene 11mm Surgeon: Cecil Funk DO Estimated blood loss: 25 mL Tourniquet 63minutes IV fluids: 1400 mL Urine output: 300mL Complications: None Condition: stable Disposition: floor Brief History: Patient is a 57-year-old male with with chronic right knee degenerative joint disease.? Patient has been worked up in the outpatient setting in the orthopedic office at this point time through shared decision making given his [id number] arthritis as well as failed conservative treatment, and pt would like to proceed with a right total knee arthroplasty.? Through shared decision making elected to proceed with surgical intervention for right total knee arthroplasty.? We talked about continued conservative treatment and surgical intervention as far as the risk benefits complications alternatives surgical and nonsurgical treatment options.? At this point time understanding patient risks with surgery he agrees to proceed with surgical intervention.? Once again? risk with surgery include but are not limited to make it better make it worse blood clot, heart attack, stroke, on the table, infection, injury to nerves or vessels, persistent pain, arthrofibrosis, implant failure.? Understanding these risks patient agrees to proceed with surgical intervention consent was obtained in the office.? All questions answered. Procedure: Patient was seen and evaluated in the preoperative holding area.? Consent was reviewed and signed with patient with plan for right total knee arthroplasty.? All questions answered.? Correct extremity marked.? Patient seen and evaluated by the anesthesia department and once cleared for surgery was taken back to the operative suite.? Patient was placed into a supine position on the OR table.? All bony prominences were well-padded.? Patient was appropriately secured to the bed.? Patient underwent anesthesia per the anesthesia department.? Patient received spinal anesthesia and? Randall catheter was placed.? A nonsterile tourniquet was applied to the right thigh.? At this point in time a final timeout performed.? Patient received appropriate preoperative antibiotics and TXA. Next the right lower extremity was then prepped and draped in standard orthopedic fashion. Esmarch tourniquet was used exsanguinate the right lower extremity.? Tourniquet was insufflated to 300 mmHg. A standard anterior incision was made over midline of the knee.? Sharp scalpel excision through skin and subcutaneous tissue full-thickness skin flaps were made.? Fascia was elevated off of the extensor retinaculum was stable with medial parapatellar arthrotomy was then made.? The performed standard sequential releases..? Immediately on entry into the joint patient was found to have severe eburnated bone and tricompartmental arthritic changes noted.? With significant osteophyte formation.? Next the the patella was then stuffed and the knee was then flexed.?? Aj was placed superiorly around the anterior aspect of the femur this was freed of synovium and I subsequently then placed by 2 femur pins to establish my femur arrays for the Alonso robot.? These were then placed bicortically and? femur array was then appropriately secured with appropriate visualization.? Next attention was turned towards the tibial rays.? These were then drilled sequentially bicortically in parallel fashion and intraincisional.? I then placed my guide as well as my tibial array on in place.? This was appropriately secured and had excellent visualization with the Alonso robot.? Next the tibial checkpoint as well as femur checkpoint were then placed.? At this point time I then subsequently established my head center as well as my medial lateral malleoli as well as my checkpoints.? Next utilizing standard Alonso technology I then mapped out the appropriate points and confirmation points around the femur as well as the tibia in standard fashion.? Once this was then done I then removed all osteophytes in preparation for dynamic testing.? All osteophytes were removed as well as I removed the ACL and the PCL was excised due to its significant tearing and degeneration noted.? At this point time the knee was brought into full extension and we performed our standard evaluation of our gap balancing stressing his ligaments and extension as well as flexion appropriate adjustments were made to have appropriate gap balancing in both flexion and extension.? This plan for final counts.? We get a preoperative plan evaluating our implants which was a size 4 femur and a size 5 tibia.? Next we brought in the Alonso robot and sequentially made our femur cuts.? All excess bony cuts were then removed.? Finally we made our tibial cut.? Once this was done a standard PCL retractor was then placed into this position I excised the medial and lateral meniscus.? The tibial cut was then subsequently removed all excess bony debris was removed.? I then utilized a lamina chief business officer and remove the posterior osteophytes.? At this point time sized the tibia and confirmed this was a size 5. I utilized our blunt probe to establish rotation of tibial implant.? Once this was done I then placed my tibia size 5 trial in appropriate position and then subsequently placed tibial pins to hold this into place placed a size 11 mm poly as well as a size 4 femur which was appropriately impacted in place knee was then subsequently brought into extension. Trials were then assessed, with the 11 mm poly and this was stable with varus valgus stress in extension as well as had symmetrical translation when brought into flexion demonstrating symmetrical gaps. I had excellent balance gaps in flexion and extension with varus and valgus stresses.? At this point I was satisfied with these implants these were then verified and opened on the back table size 5 tibia, size4 femur,? size 11 mm polythickness.? We did confirm appropriate gap balancing and stresses as well as alignment utilizing? [employer] and were satisfied with this plan.? ?At this point time with my trials in place I then towel clip the patella everted this made appropriate measurements subsequently utilizing freehand technique performed by patellar resurfacing this was confirmed to be appropriate resection and subsequently sized to be a 33 mm symmetric.? My drill peg guides were then clamped and appropriate position and appropriate position in the patella for appropriate tracking and parallel with the joint.? Pegs were drilled trial implant was placed and the knee was then subsequently ranged and found to have excellent patellar tracking.? Femur pegs were then drilled.? Satisfied with our tibial placement rotation I then utilized the keel punch and prepped the tibia.? At this point time all of our trial implants were removed.? All checkpoints as well as guidepins and arrays were removed and appropriate counts made.? The wound bed? was thoroughly irrigated and dried and prepped for cementation.? Cement was mixed on the back table.? Once cement was ready this was then covered onto the tibia and the tibial baseplate was then impacted and all excess cement was removed.? Next the polyethylene was then impacted into place on the tibial baseplate.? Next cement was placed onto the femur as well as under the femur implants and impacted in to place and all excess cement was extruded and removed.? Knee was taken into full extension? to clear all excess cement was removed.? Warm saline was placed over the joint.? I then towel clip patella and dried for cementation. cemented the patella into place.? This was all clamped and the cement was allowed to cure.? Thorough irrigation performed with pulse lavage.? I then placed my periarticular injection while the cement was curing.? Once cured the knee was taken through range of motion and had excellent stability and gaps were balanced in flexion and extension.? Tourniquet was then deflated. hemostasis satisfactory with electrocautery.? Next I then subsequently closed the capsule with Ethibond suture as well as a running strata fix suture.? 2 g of vancomycin powder was placed within the incision. knee was then taken through range of motion 30 times.? Next the skin was then closed in layered fashion of running stratifix sutures of deep and subcutenous tissue and skin.? ?closed in flexion and Prineo glue was then placed over the incision this allowed to cure.? Incision was covered with vamsi incisional VAC dressing, with ABDs soft roll and Janak wrap.? Patient was then awakened from anesthesia and taken to PACU in stable condition. Disposition: Patient taken to PACU in stable condition will be admitted to the floor for pain control PT/OT weight-bear as tolerated right lower extremity dressing changes as needed, DVT prophylaxis. Pain control. Patient will receive appropriate postoperative antibiotics. patient will be seen today by the internal medicine team for medical management.? Patient will follow up with the office in 2 weeks.? Patient understands agrees with current plan.? All questions answered.
[2023-03-23] MEDS: lactated ringers 1,000 ML 100 ML IV ×2 (13:22→23:48)
--- NOTE | 2023-03-23 16:07 | ANE.PACU2 ---
Inpatient post-anesthesia follow up: Airway intact: Yes Vital signs: Temperature 97.9 F Pulse Rate 81 Respiratory Rate 16 Blood Pressure 109/69 Pulse Oximetry 92 Oxygen Delivery Me thod Room Air Oxygen Flow Rate Fraction of Inspir ed Oxygen Hydration adequate: Yes Nausea and vomiting: No Pain level: 2 Mental status: Baseline
--- NOTE | 2023-03-23 16:08 | ANE.PACU2 ---
Inpatient post-anesthesia follow up: Airway intact: Yes Vital signs: Temperature 97.9 F Pulse Rate 81 Respiratory Rate 16 Blood Pressure 109/69 Pulse Oximetry 92 Oxygen Delivery Me thod Room Air Oxygen Flow Rate Fraction of Inspir ed Oxygen Hydration adequate: Yes Nausea and vomiting: No Pain level: 1 Mental status: Baseline
[2023-03-23] MEDS: oxyCODONE 5 mg IR Tab/Cap PO ×2 (16:17→22:01)
[2023-03-23] MEDS: chlorhexidine gluconate 0.12% Btl 473 mL 30 ML MUCOUS MEM (17:03)
[2023-03-23] MEDS: mupirocin oint 22 gm 1 APPLIC NASAL (17:04)
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
[2023-03-23] MEDS: iron polysaccharide complex 150 mg Capsule PO (17:13)
[2023-03-23] MEDS: docusate sodium 100 mg Capsule PO (17:13)
[2023-03-23] MEDS: calcium carb-vit d 600mg/400unit 1 Tablet 1 EACH PO (17:14)
[2023-03-23] MEDS: tranexamic acid 1,000 MG/100 ML PREMIX 600 MG IV (18:26)
--- NOTE | 2023-03-23 18:41 | PC.NURSE ---
Patient is very non compliant with keeping knee stabalized. Patient keeps left foot under right knee and keeps turning on side pulling knees up.
[2023-03-23 20:27] LABS: Glucose Point of Care 180 mg/dL (70-110)
[2023-03-23] MEDS: insulin lispro 100 unit/1 mL SUBCUT (21:16)
[2023-03-23] MEDS: ketorolac 30 mg/mL INJ 15 MG IVP (22:46)
[2023-03-24] MEDS: lactated ringers 1,000 ML 100 ML IV (01:38)
[2023-03-24] MEDS: ceFAZolin 2,000 MG in sodium chloride 0.9% (plus) 50 ML 100 MG IV ×2 (01:38→08:01)
[2023-03-24 03:30] VITALS: BP 114/78; PULSE 76; RESP 18; TEMP 36.8; O2SAT 98
[2023-03-24 04:19] VITALS: RESP 16
[2023-03-24] MEDS: oxyCODONE 5 mg IR Tab/Cap PO ×2 (04:19→08:40)
[2023-03-24 06:10] LABS: Glucose Point of Care 117 mg/dL (70-110)
[2023-03-24 06:19] LABS: Basophils # 0.1 10^3/uL (0.0-0.1); Basophils % 0.5 %; Eosinophils # 0.3 10^3/uL (0.0-0.8); Eosinophils % 3.3 %; Hematocrit 41.3 % (37-53); Lymphocytes % 10.3 %; Mean Corpuscular HGB Conc 31.5 g/dL (30-55); Mean Corpuscular Hemoglobin 31.9 pg (27-33); Mean Corpuscular Volume 101.5 fl (82-101); Mean Platelet Volume 11.3 fL (7.4-10.4); Monocytes # 0.9 10^3/uL (0.2-0.9); Monocytes % 8.5 %; Neutrophils # 7.71 10^3/uL (1.8-7.7); Neutrophils % 76.8 %; Nucleated Red Blood Cells % 0 %; Platelet Count 274 10^3/cmm (157-399); Red Blood Count 4.07 10^6/uL (3.85-5.65); Red Cell Distribution Width 13.1 % (12.1-15.1); White Blood Count 10.03 10^3/uL (3.29-11.43)
[2023-03-24 06:42] LABS: Anion Gap 12.2 (5-19); Blood Urea Nitrogen 11 mg/dL (6-20); Calcium 8.7 mg/dL (8.5-10.5); Carbon Dioxide 24 mmol/L (22-29); Chloride 104 mmol/L (98-107); Glomerular Filtration Rate 138.9 mL/min (90-130); Glucose 132 mg/dL (65-115); Osmolality Calculated 283 mOsm/kg (285-295); Potassium 4.2 mmol/L (3.5-5.1); Sodium 136 mmol/L (136-145)
[2023-03-24 07:32] VITALS: BP 166/110; PULSE 67; RESP 17; TEMP 36.3; O2SAT 96
[2023-03-24] MEDS: pantoprazole DR 40 mg Tablet PO (07:53)
[2023-03-24] MEDS: multivitamin therapeutic Tablet 1 TAB PO (07:54)
[2023-03-24] MEDS: iron polysaccharide complex 150 mg Capsule PO (07:54)
[2023-03-24] MEDS: calcium carb-vit d 600mg/400unit 1 Tablet 1 EACH PO (07:54)
[2023-03-24] MEDS: hydroCHLOROthiazide 25 mg Tablet PO (07:55)
[2023-03-24] MEDS: apixaban 5 mg Tablet 2.5 MG PO (07:56)
[2023-03-24] MEDS: docusate sodium 100 mg Capsule PO (07:56)
[2023-03-24] MEDS: atorvastatin 40 mg Tablet PO (07:56)
[2023-03-24] MEDS: chlorhexidine gluconate 0.12% Btl 473 mL 30 ML MUCOUS MEM (07:58)
[2023-03-24] MEDS: mupirocin oint 22 gm 1 APPLIC NASAL (07:59)
--- NOTE | 2023-03-24 08:24 | PM.DCS ---
Discharge Providers Date of Admission: 03/23/23 12:24 Date of Discharge: March 24, 2023 Attending Provider at Admission: Cecil Funk DO Attending Provider at Discharge: Cecil Funk DO Consults: Hospitalist?Dr. Pham Primary Care Provider: CARLITOS Child Diagnoses at Discharge Discharge Diagnosis (1) Status post total knee replacement, right: Status: Acute Permanent problem details: cemented, robotic-assisted Alonso (2) Diabetes mellitus, type II: Status: Chronic Qualifiers: Diabetes mellitus complication status: without complication Diabetes mellitus fci insulin use: with fci use Qualified Code(s): E11.9 - Type 2 diabetes mellitus without complications; Z79.4 - exterminator termite (current) use of insulin (3) Hypertension: Status: Chronic Qualifiers: Hypertension type: essential hypertension Qualified Code(s): I10 - Essential (primary) hypertension (4) TIAGO (obstructive sleep apnea): Status: Chronic Permanent problem details: does not have a cpap as of 03/2023, has home oxygen if needed (5) COPD (chronic obstructive pulmonary disease): Status: Chronic Qualifiers: COPD type: unspecified COPD Qualified Code(s): J44.9 - Chronic obstructive pulmonary disease, unspecified (6) Hyperlipidemia: Status: Chronic (7) S/P IVC filter: Status: Chronic Permanent problem details: still in place as of 03/2023 (8) BMI 40.0-44.9, adult: Status: Acute Reason for Visit Reason for Visit: 40970 M17.11 Brief History: Status post right total knee arthroplasty Hospital Course Hospital Course Patient presented to the preoperative holding area with plan for right total knee arthroplasty after patient has been worked up in the outpatient setting for failed conservative treatment of right knee degenerative joint disease.? Once cleared by anesthesia for surgery patient subsequently was taken back to the operative suite? underwent? anesthesia per anesthesia department and then subsequently underwent a right total knee arthroplasty.? Procedure was performed without any complications patient was taken to PACU in stable condition patient? recovered well in PACU and then was admitted to the floor postoperatively internal medicine was consulted and on board for medical management and assistance with care.? Patient received appropriate PT/OT, postoperative antibiotics, postoperative TXA, pain control, postoperative DVT prophylaxis.? Elevation and ice.? Patient encouraged for knee range of motion allowed weightbearing as tolerated to the operative lower extremity.? Vamis dressing was changed as needed, labs were monitored daily.?? Patient recovered well postoperatively and worked well and progressed well with therapy.? It was determined on postoperative day 1 the patient was stable for discharge from an orthopedic standpoint and medicine.? Patient was comfortable with discharge and plan was discharged home.? Patient received appropriate discharge instructions as well as pain medication and DVT prophylaxis postoperatively. Given his diabetic history as well as obesity we will give him a prescription of outpatient antibiotics as well postoperatively for surgical infection prophylaxis. Given appropriate instructions for? dressing management.? Patient will follow-up with Dr. Funk/orthopedics in the office in 2 weeks.? All questions answered.? Understand if there is any issues questions or concerns and contact the office. Physical Exam Narrative: Examination right lower extremity: Examination of the right knee demonstrates patient is able to wiggle toes plantarflex and dorsiflex ankle sensations intact light touch distally. Patient's distal pulses are palpable toes warm well perfused with cap refill less than 2 seconds Janak bandage dressing on in place and dressing of the right lower extremity is clean dry and intact no signs of bleeding or saturation. Dressing left on in place. Compartments are soft and compressible. Calf soft and nontender Urinary Catheter Management: Randall: Cath Placed During This Visit: yes, but has since been removed by the nurse Reason for Continuing Indwelling Catheter: Perioperative Use in Selected Surgeries Urinary Catheter Date of Insertion: 03/23/23 Urinary Catheter Time of Insertion: 10:10 Date Urinary Catheter Removed: 03/24/23 Time Urinary Catheter Discontinued: 06:00 Discharge Data Studies Completed and Pending Completed Studies During Hospitalization Category Date Time Status XR knee RT 3V* [id number] Routine Exams 03/23/23 12:32 Completed Pending at discharge Category Date Time Status Basic Metabolic Panel AM LABS Lab 03/25/23 04:00 Ordered Basic Metabolic Panel AM LABS Lab 03/26/23 04:00 Ordered Complete Blood Count w/Auto AM LABS Lab 03/25/23 04:00 Ordered Complete Blood Count w/Auto AM LABS Lab 03/26/23 04:00 Ordered Radiology Impressions Knee X-Ray 03/23/23 12:32 IMPRESSION: Status post right total knee arthroplasty. Laboratory Results WBC 10.03 10^3/uL (3.29-11.43) 03/24/23 05:45 RBC 4.07 10^6/uL (3.85-5.65) 03/24/23 05:45 Hgb 13.00 g/dL (11.27-16.99) 03/24/23 05:45 Hct 41.3 % (37-53) 03/24/23 05:45 MCV 101.5 fl (82-101) H 03/24/23 05:45 MCH 31.9 pg (27-33) 03/24/23 05:45 MCHC 31.5 g/dL (30-55) 03/24/23 05:45 RDW 13.1 % (12.1-15.1) 03/24/23 05:45 Plt Count 274 10^3/cmm (157-399) 03/24/23 05:45 MPV 11.3 fL (7.4-10.4) H 03/24/23 05:45 Neut % (Auto) 76.8 % 03/24/23 05:45 Lymph % (Auto) 10.3 % 03/24/23 05:45 [place] % (Auto) 8.5 % 03/24/23 05:45 Eos % (Auto) 3.3 % 03/24/23 05:45 Baso % (Auto) 0.5 % 03/24/23 05:45 Neut # (Auto) 7.71 10^3/uL (1.8-7.7) H 03/24/23 05:45 Lymph # (Auto) 1.0 10^3/uL (0.8-4.8) 03/24/23 05:45 [place] # (Auto) 0.9 10^3/uL (0.2-0.9) 03/24/23 05:45 Eos # (Auto) 0.3 10^3/uL (0.0-0.8) 03/24/23 05:45 Baso # (Auto) 0.1 10^3/uL (0.0-0.1) 03/24/23 05:45 Nucleated RBC % (auto) 0 % 03/24/23 05:45 Nucleated RBCs # 0.0 /100WBC 03/24/23 05:45 Sodium 136 mmol/L (136-145) 03/24/23 05:45 Potassium 4.2 mmol/L (3.5-5.1) 03/24/23 05:45 Chloride 104 mmol/L (98-107) 03/24/23 05:45 Carbon Dioxide 24 mmol/L (22-29) 03/24/23 05:45 Anion Gap 12.2 (5-19) 03/24/23 05:45 BUN 11 mg/dL (6-20) 03/24/23 05:45 Creatinine 0.6 mg/dL (0.7-1.2) L 03/24/23 05:45 GFR Calculation 138.9 mL/min (90-130) H 03/24/23 05:45 Glucose 132 mg/dL (65-115) H 03/24/23 05:45 POC Glucose 117 mg/dL (70-110) H 03/24/23 06:05 Calculated Osmolality 283 mOsm/kg (285-295) L 03/24/23 05:45 Calcium 8.7 mg/dL (8.5-10.5) 03/24/23 05:45 Blood Type A Positive 03/23/23 08:05 Rho(D) Type Positive 03/23/23 08:05 Antibody Screen Negative 03/23/23 08:05 Vitals Last Vital Signs Temp 97.4 F L 03/24/23 07:32 Pulse 67 03/24/23 07:32 Resp 17 03/24/23 07:32 BP 166/110 03/24/23 07:32 Pulse Ox 96 03/24/23 07:32 O2 Del Method Room Air 03/24/23 07:32 Discharge Plan Discharge Patient Disposition: Home Condition: Stable Prescriptions: New Eliquis 2.5 mg tablet 2.5 mg PO BID 14 Days Qty: 28 0RF cephalexin 500 mg capsule 500 mg PO TID 10 Days Qty: 30 0RF Continued atorvastatin 40 mg tablet 40 mg PO DAILY pantoprazole 40 mg tablet,delayed release (DR/EC) 40 mg PO DAILY furosemide 20 mg tablet 20 mg PO DAILY Anoro Ellipta 62.5-25 mcg/actuation blister with device 1 inh inhalation DAILY Trulicity 1.5 mg/0.5 mL pen injector 1.5 mg SUBCUT .weekly metformin 500 mg tablet 1,000 mg PO BID Rx Instructions: PT AND PTS STATES THE PT HASNT HAD THIS MEDICATION FOR A WEEK albuterol sulfate 90 mcg/actuation HFA aerosol inhaler 2 inh INHALATION Q4H PRN (Reason: shortness of breath or wheezing) hydrochlorothiazide 25 mg tablet 25 mg PO DAILY Discontinued hydrocodone-acetaminophen 5-325 mg tablet 1 tab PO Q6H PRN (Reason: pain) 7 Days Qty: 28 0RF naproxen 500 mg tablet 500 mg PO BID Discharge Orders: Discharge Order (Routine); Ordered 03/24/23 Ordered By: Cecil Funk Other Ambulatory Orders: DME: Walker (Order) Location: None Selected Ordered By: Cecil Funk Referrals: Antonio Klein CPNP [Primary Care Provider] - 03/27/23 10:00 am Cecil Funk DO [Physician] - 04/14/23 8:30 am Discharge Diet: Advance as tolerated Discharge Activity: Increase activity as tolerated, Use walker/crutches as instructed and As per PT/OT instructions Patient Instructions: COPD, Cephalexin (By mouth) (Bio-Cef, Keflex), Oxycodone/Acetaminophen (By mouth), Ondansetron (By mouth), Apixaban (By mouth), Total Knee Replacement (GEN), COPD Stoplight, Joint Replacement Stoplight Activity Restrictions/Additional Instructions: Orthopedic discharge instructions Keep incisions clean dry and intact, leave vamsi bandage dressings on in place for 7 days, after that may remove vamsi bandage dressing and replace with a dry dressing (Silverlon) keep incision clean and dry and do not get wet, no baths or soaks. Patient may weight-bear as tolerate to the operative extremity Utilize crutches as needed Encourage knee range of motion Ice and elevate as needed for pain and swelling Take pain medication as prescribed Take antinausea medication as needed Take antibiotic as prescribed for infection prevention The prescribed Eliquis twice daily for the next 14 days for blood clot prevention May supplement for pain with antiinflammatory [id number] as needed No baths or soaks Follow-up in the orthopedic office in 2 weeks Contact the office for any questions or concerns Discharge Attestations Time Spent in Discharge Care*: less than 30 min Quality Metrics Clinical Quality Measures [ No reported AMI, CVA or VTE this stay] Coding Level of Care Code Acute Code for Chg Fwd Diagnoses Status post total knee replacement, right Z96.651 Diabetes mellitus, type II E11.9; Z79.4 Diabetes mellitus complication status: without complication Diabetes mellitus intermediate card tender insulin use: with fci use Hypertension I10 Hypertension type: essential hypertension TIAGO (obstructive sleep apnea) G47.33 COPD (chronic obstructive pulmonary disease) J44.9 COPD type: unspecified COPD Hyperlipidemia E78.5 S/P IVC filter Z95.828 BMI 40.0-44.9, adult Z68.41 Time Spent (min) 25
[2023-03-24 08:40] VITALS: RESP 17; O2SAT 96
[2023-03-24] MEDS: acetaminophen 1,000 MG/100 ML PIGGYBACK 400 MG IV (08:40)
--- NOTE | 2023-03-24 10:06 | PC.CHAP ---
Pastoral Care Encounter/Spiritual Assessment Type of Contact [] Declined game trapper visit [] Patient/Family/Request visit [] Outpatient visit [] Follow-up visit [] Physician referral [] Code/Alert [] Routine visit [] Staff referral [] Actively dying [] Patient sleeping [] Family support [] [] Out of room [] Palliative care [] [x] Receiving care in room [] Pre-surgical visit [] Trauma [] Long length of stay [] ICU visit [] Other: Relational/Emotional Strength [] Patient feels connected with others/family/visitors/staff [] Distress [] Loneliness/isolation [] Abandonment Spirituality of Patient [] Person of Marielos [] Attends Episcopal of their Marielos [] Believes in Prayer [] Reads Bible or Buddhist materials [] There are Spiritual issues to be addressed Podiatric Technician Interventions [] Prayer [] Active listening [] Non-anxious presence [] Spiritual/emotional support [] Crisis/trauma care [] Spiritual counseling [] Bereavement support [] Provided bereavement packet [] Provided Bible/devotional materials [] Provided toy/stuffed animal, coloring book to patient or family member [] Provided Communion [] Anointing/[place] [] Salvation [] Completed spiritual assessment [] Other: Impact on Illness or Injury [] Angry [] Fearful [] Anxious [] Often cries [] Exhaustion [] Unable to work [] Unable to attend presybeterian [] Unable to walk/stand [] Unable to read [] Unable to drive [] Unable to eat/drink [] Unable to sleep [] Unable to be with family [] Patient intubated [] Other: Summary Time spent with patient
--- NOTE | 2023-03-24 10:12 | P.PN_ITS ---
Subjective Subjective: seen this am pt requesting pain meds Vitals/I&O/Wt Last Vital Signs Temp 97.4 F L 03/24/23 07:32 Pulse 67 03/24/23 07:32 Resp 17 03/24/23 08:40 BP 166/110 03/24/23 07:32 Pulse Ox 96 03/24/23 08:40 O2 Del Method Room Air 03/24/23 08:00 03/23/23 03/24/23 03/24/23 22:59 06:59 14:59 Intake Total 630 / 2280 1333.333 / 3613.333 240 / 240 Output Total 550 / 875 150 / 1025 Balance 80 / 1405 1183.333 / 2588.333 240 / 240 Weight last 48 hrs Weight 127.006 kg Physical Exam Narrative: Patient is awake and alert, seen laying in bed. Extraocular movements are intact. Face is symmetric, speech is clear. Neck is large but supple. Lungs are clear to auscultation without any rales rhonchi or wheezes noted. Cardiovascular exam reveals a regular rate and rhythm. Abdomen is soft with positive bowel sounds. Right lower extremity with intact dressings noted. Urinary Catheter Management: Randall: Cath Placed During This Visit: yes, but has since been removed by the nurse Reason for Continuing Indwelling Catheter: Perioperative Use in Selected Surgeries Urinary Catheter Date of Insertion: 03/23/23 Urinary Catheter Time of Insertion: 10:10 Date Urinary Catheter Removed: 03/24/23 Time Urinary Catheter Discontinued: 06:00 Data 03/24/23 05:45 03/24/23 05:45 A&P Assessment and plan (1) Status post total knee replacement, right: Postop day 1, doing well thus far (2) Diabetes mellitus, type II: Fps-opgxgsy-[id number] with hyperglycemia currently while he has been off of usual medications preoperatively but recent hemoglobin A1c 6.3. Chronically on Trulicity and metformin. Qualifiers: Diabetes mellitus shelter insulin use: with shelter use Diabetes mellitus complication status: without complication Qualified Code(s): E11.9 - Type 2 diabetes mellitus without complications; Z79.4 - group home (current) use of insulin (3) Hypertension: Currently within appropriate range postoperatively. Chronically on hydrochlorothiazide and Lasix Qualifiers: Hypertension type: essential hypertension Qualified Code(s): I10 - Essential (primary) hypertension (4) TIAGO (obstructive sleep apnea): Diagnosis though does not have CPAP, has oxygen at home if needed (5) COPD (chronic obstructive pulmonary disease): Former cigarette smoker, continues to use chewing tobacco. Currently without COPD exacerbation symptoms. Qualifiers: COPD type: unspecified COPD Qualified Code(s): J44.9 - Chronic obstructive pulmonary disease, unspecified (6) Hyperlipidemia: Chronically on statin therapy (7) S/P IVC filter: In place since the or 90s. On review of available previous imaging studies there is a notation from a CTA that the IVC filter was in place. (8) BMI 40.0-44.9, adult: Plan Postoperative management as per Dr. Funk in terms of pain control, antibiotics and the like While in the hospital will monitor blood sugars and provide insulin therapy if indicated Anticipate resumption of Trulicity and metformin postoperatively as long as metformin (48 hrs after any contrast if administered) COntinue hydrochlorothiazide today for blood pressure control and can follow with Lasix the day thereafter as blood pressures allow Continue home atorvastatin Oxygen therapy if needed with sleep, will need to monitor for sleep apnea necessitating further intervention Breathing treatments if needed Incentive spirometry encouraged particularly with recent scapular and rib fractures combined with known COPD history Continue home PPI Diabetic diet Supportive care otherwise We will follow along while patient is here and address acute medical issues should they arise Medicine will continue to follow Attestations Medical Necessity Statement*: Defer to primary team Diagnoses Status post total knee replacement, right Z96.651 Diabetes mellitus, type II E11.9; Z79.4 Diabetes mellitus shelter insulin use: with shelter use Diabetes mellitus complication status: without complication Hypertension I10 Hypertension type: essential hypertension TIAGO (obstructive sleep apnea) G47.33 COPD (chronic obstructive pulmonary disease) J44.9 COPD type: unspecified COPD Hyperlipidemia E78.5 S/P IVC filter Z95.828 BMI 40.0-44.9, adult Z68.41
--- NOTE | 2023-03-24 11:51 | PC.NURSE ---
Discussed discharge medications, follow up appointments and discontinued medications. Patient verbalized understanding.
[2023-03-24 12:24] VITALS: RESP 17; O2SAT 96
== END 2023-03-24 12:10 | disposition home or self-care (01) ==
LOC: MEDSURG 12:24
PROVIDERS: Admitting Provider Student in an Organized Health Care Education/Training Program; PCP Registered Nurse; Visit Provider Student in an Organized Health Care Education/Training Program
PROC: 8E0Y0CZ Robotic Assisted Procedure of Lower Extremity, Open Approach (ICD-10-PCS; CPT 27447; principal; 2023-03-23 08:50)
DX: M17.11 Unilateral primary osteoarthritis, right knee (principal); J44.9 Chronic obstructive pulmonary disease, unspecified; I10 Essential (primary) hypertension; K21.9 Gastro-esophageal reflux disease without esophagitis; E11.9 Type 2 diabetes mellitus without complications; E78.5 Hyperlipidemia, unspecified; E66.01 Morbid (severe) obesity due to excess calories; Z68.41 Body mass index [BMI] 40.0-44.9, adult; Z79.84 Long term (current) use of oral hypoglycemic drugs; Z85.038 Personal history of other malignant neoplasm of large intestine; Z86.711 Personal history of pulmonary embolism; G47.33 Obstructive sleep apnea (adult) (pediatric); F17.220 Nicotine dependence, chewing tobacco, uncomplicated
CPT/HCPCS: 20985; 27447; 36415; 36416; 51702; 73562; 80048; 82962; 85025; 86850; 86900; 96372; 97110; 97116; 97161; 97165; C1776; G0378; J0131; J0171; J0690; J1170; J1815; J1885; J2250; J2371; J2704; J2795; J3370; J7030; J7120

== ENCOUNTER → 2023-04-14 08:57 | Outpatient (BNVA) | payer MEDICAID, SELFPAY | PROVIDERS: PCP Registered Nurse; Visit Provider Student in an Organized Health Care Education/Training Program | DX: Z96.651 Presence of right artificial knee joint (principal) | CPT/HCPCS: 73562; 99024 ==

== ENCOUNTER 2023-05-30 12:41 | Emergency (ER) | payer MEDICAID, SELFPAY ==
[2023-05-30 12:46] VITALS: BP 180/115; PULSE 88; RESP 20; O2SAT 96
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
[2023-05-30 13:06] VITALS: BP 167/100; PULSE 87; RESP 18; O2SAT 95
[2023-05-30 13:30] VITALS: BP 166/83; PULSE 98; RESP 18; O2SAT 97
[2023-05-30] MEDS: HYDROcodone-acetaminophen 10-325 mg Tablet 1 TAB PO (14:10)
[2023-05-30 14:14] VITALS: BP 132/88; PULSE 95; RESP 18; O2SAT 97
== END 2023-05-30 14:15 | disposition home or self-care (01) ==
PROVIDERS: Emergency Provider Internal Medicine; PCP Registered Nurse
DX: S80.01XA Contusion of right knee, initial encounter (principal); Z79.85 Long-term (current) use of injectable non-insulin antidiabetic drugs; Z79.84 Long term (current) use of oral hypoglycemic drugs; Z72.0 Tobacco use; E78.5 Hyperlipidemia, unspecified; I10 Essential (primary) hypertension; Z85.038 Personal history of other malignant neoplasm of large intestine; E11.9 Type 2 diabetes mellitus without complications; J44.9 Chronic obstructive pulmonary disease, unspecified; V53.6XXA Passenger in pick-up truck or van injured in collision with car, pick-up truck or van in traffic accident, initial encounter
CPT/HCPCS: 73562; 99283; E0114

== ENCOUNTER → 2023-07-09 10:12 | Outpatient (BNVA) | payer MEDICAID, SELFPAY | PROVIDERS: PCP Registered Nurse; Visit Provider Student in an Organized Health Care Education/Training Program | DX: M25.561 Pain in right knee (principal); Z96.651 Presence of right artificial knee joint | CPT/HCPCS: 73560; 73565; 99213 ==

== ENCOUNTER 2023-10-01 17:19 | Inpatient (IN) | payer MEDICAID, SELFPAY ==
[2023-10-01] VITALS (7 sets, daily range): BP systolic 102–130; BP diastolic 68–86; PULSE 75–92; RESP 15–26; TEMP 36.7–37.4; O2SAT 93–97; BMI 45.0
--- NOTE | 2023-10-01 17:31 | ECG_ITS ---
[facility] Test Date: 2023-10-01 Pat Name: Socrates Coker Department: Room: Gender: Male Maxillofacial Prosthetics Dentist: : 1965 Requested By: Paul Bennett Order Number: [id number] Constantine MD: Leland Howell M.D. Measurements Intervals [place] Rate: 98 P: 19 CT: 138 QRS: 90 QRSD: 73 T: 67 QT: 325 QTc: 417 Interpretive Statements SINUS RHYTHM WITH OCCASIONAL VENTRICULAR PREMATURE COMPLEXES LOW QRS VOLTAGE IN PRECORDIAL LEADS [QRS DEFLECTION < 1.0 mV IN CHEST LEADS] POSSIBLE ANTERIOR MYOCARDIAL INFARCTION , PROBABLY OLD [30 ms Q WAVE IN V3/V4, OR R < 0.2 mV IN V4] Compared to ECG 04/21/2022 09:26:50 Ventricular premature complex(es) now present Myocardial infarct finding now present Indeterminate axis no longer present Electronically Signed On 10-02-2023 0:07:53 CDT by Leland Howell M.D. [id number] f
--- NOTE | 2023-10-01 17:31 | XRR_ITS ---
PROCEDURE INFORMATION: Exam: XR Chest Exam date and time: 10/01/2023 5:39 PM Age: 57 years old Clinical indication: Cough and fever; Additional info: SOB, weakness/fever past 6 days TECHNIQUE: Imaging protocol: Radiologic exam of the chest. Views: 1 view. COMPARISON: CT chest con [id number] 01/22/2023 1:15 PM FINDINGS: Lungs: Left basilar atelectasis or scarring, stable compared to prior CT. No consolidation. Pleural spaces: No pleural effusion or pneumothorax. Heart/Mediastinum: The heart is magnified. Heart size is likely within normal limits. Vasculature: Atherosclerotic calcifications of the aorta are noted. Bones/joints: No acute osseous abnormalities are seen. XR/XR chest 1V portable [id number] IMPRESSION: No acute cardiopulmonary disease.
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
[2023-10-01] MEDS: sodium chloride 0.9% 1,000 ML 999 ML IV ×2 (18:02→19:51)
[2023-10-01 18:13] LABS: Basophils % 0.4 %; Hematocrit 48.4 % (37-53); Lymphocytes # 0.5 10^3/uL (0.8-4.8); Lymphocytes % 19.2 %; Mean Corpuscular HGB Conc 34.3 g/dL (30-55); Mean Corpuscular Hemoglobin 31.3 pg (27-33); Mean Corpuscular Volume 91.1 fl (82-101); Mean Platelet Volume 11.5 fL (7.4-10.4); Monocytes # 0.3 10^3/uL (0.2-0.9); Monocytes % 9.6 %; Neutrophils # 1.94 10^3/uL (1.8-7.7); Nucleated Red Blood Cells % 0 %; Platelet Count 142 10^3/cmm (157-399); Red Blood Count 5.31 10^6/uL (3.85-5.65); Red Cell Distribution Width 14.2 % (12.1-15.1); White Blood Count 2.81 10^3/uL (3.29-11.43)
[2023-10-01 18:25] LABS: ABG PCO2 26.6 mmHg (35-45); ABG PH Result 7.46 (7.35-7.45); Arterial Blood Gas Hematocrit 48.1 % (42-52); Base Excess ABG -3.1 mmol/L (-2.0-2.0); Blood Gas Allen Test Pos; Blood Gas Operator Identificat AMH; Blood Gas Sample Site Radial, right; Blood Gas Sample Type Arterial; Oxygen Device ROOM AIR; PO2 FiO2 Ratio Arterial Blood 0
[2023-10-01 18:30] LABS: INR 0.98 (0.8-1.2)
[2023-10-01 18:34] LABS: Slide Review Slide Review Perform
[2023-10-01 18:35] LABS: Troponin(5th) Baseline 58 ng/L (0-15)
[2023-10-01 18:56] LABS: Alanine Aminotransferase 50 U/L (0-41); Albumin Level 3.7 g/dL (3.5-5.2); Alkaline Phosphatase 109 U/L (40-130); Aspartate Amino Transferase 167 U/L (0-40); Blood Urea Nitrogen 20 mg/dL (6-20); Calcium 7.7 mg/dL (8.5-10.5); Carbon Dioxide 19 mmol/L (22-29); Chloride 89 mmol/L (98-107); Globulin 4.2 g/dL (1.3-4.6); Glomerular Filtration Rate 39.1 mL/min (90-130); Glucose 219 mg/dL (65-115); NT Pro B Type Natriuretic Pept 74 pg/mL (0-125); Osmolality Calculated 267 mOsm/kg (285-295); Sodium 124 mmol/L (136-145); Total Bilirubin 0.4 mg/dL (0.15-1.2); Total Protein 7.9 g/dL (6.6-8.7)
[2023-10-01 19:01] LABS: Anion Gap 19.8 (5-19); Potassium 3.8 mmol/L (3.5-5.1)
[2023-10-01 19:17] LABS: Glucose Urine UA Norm (Normal); Ketones Urine 1+ (Negative); Protein Urine 1+ (Negative); Urine Appearance Hazy (CLEAR); Urine Color Amber (Yellow); pH Urine 5 (5-7)
[2023-10-01 19:18] LABS: Add Urine Microscopic? YES; Blood Urine 2+ (Negative)
[2023-10-01 19:32] LABS: Add Urine Culture? No; Amorphous Sediment Urine TRACE /hpf; Bacteria Urine 1+ /hpf; Fine Granular Casts Urine 0-4 /lpf; Mucus Urine 2+ /hpf; RBC Urine 0-4 /hpf (0-2); Squamous Epithelial Cell Urine 0-4 /hpf (0-5); WBC Urine 0-4 /hpf (0-5)
--- NOTE | 2023-10-01 19:53 | ECG_ITS ---
[facility] Test Date: 2023-10-01 Pat Name: Socrates Coker Department: Room: Gender: Male Physician Industrial: : 1965 Requested By: Paul Bennett Order Number: [id number] Constantine MD: Natali Wynn M.D. Measurements Intervals [place] Rate: 91 P: 8 PA: 156 QRS: 60 QRSD: 70 T: 75 QT: 336 QTc: 414 Interpretive Statements SINUS RHYTHM WITH FREQUENT VENTRICULAR PREMATURE COMPLEXES Nonspecific ST changes ABNORMAL RHYTHM ECG Compared to ECG 10/01/2023 17:23:18 No significant change Electronically Signed On 10-02-2023 8:22:55 CDT by Natali Wynn M.D. [id number]
[2023-10-01 20:08] LABS: Adenovirus Not Detected (NOT DETECT); Chlamydia Pneumoniae Not Detected (NOT DETECT); Coronavirus 229E,HKU1,NL63,OC4 Not Detected (NOT DETECT); Human Metapneumovirus Not Detected (NOT DETECT); Human Rhinovirus/Enterovirus Not Detected (NOT DETECT); Influenza A Not Detected (NOT DETECT); Influenza A H1 Not Detected (NOT DETECT); Influenza A H1-2009 Not Detected (NOT DETECT); Influenza A H3 Not Detected (NOT DETECT); Influenza B Not Detected (NOT DETECT); Mycoplasma Pneumoniae Not Detected (NOT DETECT); Parainfluenza Virus Type 1 Not Detected (NOT DETECT); Parainfluenza Virus Type 2 Not Detected (NOT DETECT); Parainfluenza Virus Type 3 Not Detected (NOT DETECT); Parainfluenza Virus Type 4 Not Detected (NOT DETECT); Respiratory Syncytial Virus A Not Detected (NOT DETECT); Respiratory Syncytial Virus B Not Detected (NOT DETECT); SARS-COV-2 Not Detected (NOT DETECT)
[2023-10-01 20:32] LABS: Troponin 5 2HR 49.46 ng/L (0-15)
[2023-10-01 20:33] LABS: Troponin 5 2HR Delta -8.54 ABS# (0-10)
[2023-10-01 21:32] LABS: Reflex Lactate Order REFLEX LACTIC ORDERD
--- NOTE | 2023-10-01 21:34 | CTR_ITS ---
PROCEDURE INFORMATION: Exam: CT Abdomen And Pelvis Without Contrast Exam date and time: 10/01/2023 10:08 PM Age: 57 years old Clinical indication: Abdominal pain; Prior surgery; Surgery date: 6+ months; Surgery type: Appy, colon; Additional info: Abominal pain TECHNIQUE: Imaging protocol: Computed tomography of the abdomen and pelvis without contrast. Radiation optimization: All CT scans at this facility use at least one of these dose optimization techniques: automated exposure control; mA and/or kV adjustment per patient size (includes targeted exams where dose is matched to clinical indication); or iterative reconstruction. COMPARISON: CT abdomen pelvis w con* [id number] 12/29/2019 5:54 PM RADIATION DOSE METRICS: Total DLP (mGy-cm): 1192.1 FINDINGS: Lungs: Stable left posterior lower lobe atelectasis or scarring. Heart: Heart size is within normal limits. There is no pericardial effusion or pericardial thickening. Liver: There is diffuse decreased attenuation of the hepatic parenchyma consistent with fatty infiltration. The liver is otherwise normal. There are no hepatic masses identified. Gallbladder and bile ducts: The gallbladder is contracted. There is no ductal dilatation. Pancreas: The pancreas is atrophic without obvious abnormality. Spleen: The spleen is normal. Adrenal glands: The adrenal glands are normal. Kidneys and ureters: No renal calcifications are identified. There is no hydronephrosis. Stomach and bowel: Postoperative changes of the distal stomach are noted. Apparent right hemicolectomy. Fluid and gas within the colon which can be seen in diarrheal illness. There is no large or small bowel obstruction. There is no evidence of bowel wall thickening. Appendix: The appendix is absent compatible with absent right colon. Intraperitoneal space: No inflammatory changes are identified. There is no free fluid or fluid collection seen. There is no pneumoperitoneum. Vasculature: IVC filter is in place. Atherosclerotic calcifications of the aorta are present. No aneurysm is identified. Lymph nodes: Multiple enlarged right external iliac lymph nodes measuring up to 3.5 x 1.8 cm. Prominent right inguinal and right common iliac lymph nodes have also increased in size compared to prior study. Prominent left external iliac lymph nodes are stable. No enlarged retroperitoneal lymph nodes. No enlarged mesenteric lymph nodes. Urinary bladder: The bladder is unremarkable. Reproductive: The prostate is grossly unremarkable. Bones/joints: Chronic left inferior and superior pubic rami fractures. No acute osseous abnormalities are seen. Soft tissues: Multiple soft tissue densities in the subcutaneous fat are similar compared to 2020. The soft tissues are otherwise within normal limits. Small periumbilical hernia containing only fat. The soft tissues are otherwise within normal limits. CT/CT abdomen pelvis wo con [id number] IMPRESSION: 1. Nonspecific enlargement of right common and external iliac lymph nodes and prominent right inguinal lymph nodes which have increased in size compared to prior study. Clinical correlation is recommended, and tissue sampling may be required definitive diagnosis. 2. No definitive acute intra-abdominal or pelvic process. 3. Other nonemergent findings above. COMMENTS: For patients with an IVC filter, recommend assessment for a management plan for the patient's IVC filter. If there is no established management plan, recommend referral to an interventional clinician on a nonemergent basis for evaluation.
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
[2023-10-01 22:25] LABS: Erythrocyte Sedimentation Rate 20 mm/hr (0-10)
[2023-10-01] MEDS: sodium chloride 0.9% 1,000 ML 125 ML IV (22:38)
[2023-10-01 22:39] LABS: Lactic Acid level (Lactate) 1.1 mmol/L (0.5-2.2)
[2023-10-01 22:55] LABS: Amphetamines Screen Urine Positive (Negative); Barbiturates Screen Urine Negative (Negative); Benzodiazepines Screen Urine Negative (Negative); Cocaine Screen Urine Negative (Negative); Opiate Screen Urine Negative (Negative); PCP Screen Urine Negative (Negative); THC Screen Urine Positive (Negative)
[2023-10-01] MEDS: doxycycline 100 MG in sodium chloride 0.9% (plus) 100 ML IV (23:03)
[2023-10-01] MEDS: pantoprazole 40 mg SDV IVP (23:03)
[2023-10-01] MEDS: enoxaparin 40 mg/0.4 mL Syringe SUBCUT (23:03)
[2023-10-01] MEDS: cefTRIAXone 1,000 MG in sodium chloride 0.9% (plus) 50 ML 100 MG IV (23:04)
[2023-10-01 23:45] LABS: Thyroid Stimulating Hormone 3.11 uIU/mL (0.27-4.20)
--- NOTE | 2023-10-01 23:53 | ECG_ITS ---
[facility] Test Date: 2023-10-02 Pat Name: Socrates Coker Department: Room: 106 Gender: Male Hospice Community Liaison: : 1965 Requested By: Paul Bennett Order Number: [id number] Constantine MD: Natali Wynn M.D. Measurements Intervals [place] Rate: 81 P: 0 NV: 0 QRS: 66 QRSD: 66 T: 90 QT: 342 QTc: 398 Interpretive Statements Significant baseline artifact. Normal sinus rhythm Nonspecific ST-T changes across precordial leads LOW QRS VOLTAGE IN PRECORDIAL LEADS [QRS DEFLECTION < 1.0 mV IN CHEST LEADS] ABNORMAL RHYTHM ECG Compared to ECG 10/01/2023 19:54:10 PVCs are not present Electronically Signed On 10-02-2023 8:18:32 CDT by Natali Wynn M.D. [id number]
[2023-10-01 23:56] LABS: C Reactive Protein 10.6 mg/L (0.0-4.9)
[2023-10-01 23:59] LABS: Alcohol Level < 10 mg/dL (0-10)
[2023-10-02] VITALS (12 sets, daily range): BP systolic 107–156; BP diastolic 61–85; PULSE 65–78; RESP 16–28; TEMP 36.3–37.2; O2SAT 92–99
[2023-10-02 00:20] LABS: Troponin 5 6HR 41.31 ng/L (0-15)
[2023-10-02 00:21] LABS: Ammonia 34 umol/L (16-60)
[2023-10-02 00:22] LABS: Troponin 5 6HR Delta -16.69 ng/L (0-12)
[2023-10-02 00:34] LABS: Creatine Phosphokinase 2639 U/L (39-308)
[2023-10-02 00:39] LABS: Hepatitis A Antibody IgM Non-Reactive (Nonreactive); Hepatitis B Core IgM Non-Reactive (Nonreactive); Hepatitis B Surface Antigen Non-Reactive (Nonreactive); Hepatitis C Virus Antibody Non-Reactive (Nonreactive)
[2023-10-02 00:45] LABS: HIV 1 & 2 Antibody Non-Reactive (Non-Reactiv); HIV 1 & 2 Antigen Non-Reactive (Non-Reactiv)
[2023-10-02] MEDS: acetaminophen 325 mg Tablet 650 MG PO (01:28)
[2023-10-02 05:18] LABS: Basophils % 0.5 %; Hematocrit 44.4 % (37-53); Lymphocytes # 0.8 10^3/uL (0.8-4.8); Lymphocytes % 37.9 %; Mean Corpuscular HGB Conc 33.3 g/dL (30-55); Mean Corpuscular Hemoglobin 31.6 pg (27-33); Mean Corpuscular Volume 94.9 fl (82-101); Mean Platelet Volume 12.3 fL (7.4-10.4); Monocytes # 0.2 10^3/uL (0.2-0.9); Monocytes % 8.9 %; Neutrophils % 51.3 %; Nucleated Red Blood Cells % 0 %; Platelet Count 107 10^3/cmm (157-399); Red Blood Count 4.68 10^6/uL (3.85-5.65); Red Cell Distribution Width 14.3 % (12.1-15.1); White Blood Count 2.14 10^3/uL (3.29-11.43)
[2023-10-02] MEDS: sodium chloride 0.9% 1,000 ML 125 ML IV ×2 (05:21→21:31)
[2023-10-02 05:41] LABS: Alanine Aminotransferase 40 U/L (0-41); Albumin Level 2.7 g/dL (3.5-5.2); Alkaline Phosphatase 86 U/L (40-130); Blood Urea Nitrogen 19 mg/dL (6-20); Carbon Dioxide 19 mmol/L (22-29); Chloride 97 mmol/L (98-107); Creatinine Clr Calc Pharmacy 88.2098; Glomerular Filtration Rate 62.4 mL/min (90-130); Glucose 135 mg/dL (65-115); Osmolality Calculated 270 mOsm/kg (285-295); Sodium 128 mmol/L (136-145); Total Bilirubin 0.3 mg/dL (0.15-1.2); Total Protein 6.7 g/dL (6.6-8.7)
[2023-10-02 05:47] LABS: Anion Gap 15.6 (5-19); Aspartate Amino Transferase 145 U/L (0-40); Potassium 3.6 mmol/L (3.5-5.1)
[2023-10-02 05:59] LABS: Slide Review Slide Review Perform
[2023-10-02 06:37] LABS: Glucose Point of Care 151 mg/dL (70-110)
[2023-10-02] MEDS: insulin lispro 100 unit/1 mL SUBCUT (08:25)
--- NOTE | 2023-10-02 08:49 | PC.NURSE ---
During bedside rounding patient is sleeping in bed. Nurse woke patient to let him know breakfast was there. Nurse helped patient get set up for breakfast, educated patient regarding his blood glucose level and the amount of insulin he was to receive per sliding scale. Patient is agreeable and understands. Patient has no complaints at this time. Nurse will continue to monitor.
--- NOTE | 2023-10-02 09:34 | PC.CHAP ---
Pastoral Care Encounter/Spiritual Assessment Type of Contact [] Declined contract clerk visit [] Patient/Family/Request visit [] Outpatient visit [] Follow-up visit [] Physician referral [] Code/Alert [] Routine visit [] Staff referral [] Actively dying [x] Patient sleeping [] Family support [] [] Out of room [] Palliative care [] [] Receiving care in room [] Pre-surgical visit [] Trauma [] Long length of stay [] ICU visit [] Other: Relational/Emotional Strength [] Patient feels connected with others/family/visitors/staff [] Distress [] Loneliness/isolation [] Abandonment Spirituality of Patient [] Person of Marielos [] Attends Caodaism of their Marielos [] Believes in Prayer [] Reads Bible or Mandaen materials [] There are Spiritual issues to be addressed Electronics Engineering Manager Interventions [] Prayer [] Active listening [] Non-anxious presence [] Spiritual/emotional support [] Crisis/trauma care [] Spiritual counseling [] Bereavement support [] Provided bereavement packet [] Provided Bible/devotional materials [] Provided toy/stuffed animal, coloring book to patient or family member [] Provided Communion [] Anointing/[place] [] Salvation [] Completed spiritual assessment [] Other: Impact on Illness or Injury [] Angry [] Fearful [] Anxious [] Often cries [] Exhaustion [] Unable to work [] Unable to attend orthodox [] Unable to walk/stand [] Unable to read [] Unable to drive [] Unable to eat/drink [] Unable to sleep [] Unable to be with family [] Patient intubated [] Other: Summary Time spent with patient
[2023-10-02] MEDS: doxycycline 100 MG in sodium chloride 0.9% (plus) 100 ML IV ×2 (10:31→22:51)
--- NOTE | 2023-10-02 10:47 | PM.PN ---
Subjective Subjective: seen this am no acute events overnight Vitals/I&O/Wt Last Vital Signs Temp 97.3 F L 10/02/23 08:00 Pulse 78 10/02/23 09:25 Resp 18 10/02/23 09:25 BP 107/63 10/02/23 08:00 Pulse Ox 94 10/02/23 09:25 O2 Del Method Room Air 10/02/23 09:25 O2 Flow Rate 4 10/01/23 21:00 10/01/23 10/02/23 10/02/23 22:59 06:59 14:59 Intake Total 1999 1139.583 / 3139.583 Output Total 600 / 600 Balance 1999 539.583 / 6489.583 Weight last 48 hrs Weight 130.408 kg Weight 130.408 kg Weight 124.738 kg Physical Exam Const: COMMON NORMALS: no acute distress and patient oriented x3 HENMT: COMMON NORMALS: normocephalic HEAD & SCALP: normocephalic Eye: COMMON NORMALS: Equal, round and reactive pupils present and EOMs intact bilaterally PUPIL: Yes Equal, round and reactive pupils present Neck/C-Spine: COMMON NORMALS: no JVD Lymph: LYMPHATIC: no lymphadenopathy noted Resp: COMMON NORMALS: normal respiratory effort, No retractions, No use of accessory muscles and clear to auscultation bilaterally AUSCULTATION: clear to auscultation bilaterally Cardio: COMMON NORMALS: no JVD, regular rate, regular rhythm, S1 normal heart sound present and S2 normal heart sound present RATE: regular rate RHYTHM: regular rhythm HEART SOUNDS: S1 normal heart sound present and S2 normal heart sound present GI: COMMON NORMALS: Normal to inspection, nondistended, normoactive bowel sounds present, Soft to palpation and non-tender PALPATION: Yes Soft to palpation : COMMON NORMALS: Yes no CVA tenderness BLADDER/KIDNEY EXAM: Yes no CVA tenderness Back/Pelvis: COMMON NORMALS: no CVA tenderness Extremity: COMMON NORMALS: no pedal edema Neuro: COMMON NORMALS: patient oriented x3, CN's II-XII intact bilaterally, moves all extremities and no focal motor deficits Psych: COMMON NORMALS: mental status grossly normal Skin: NARRATIVE SKIN EXAM: Does have several areas of insect bites, has several areas of maculopapular rash, erythematous, round, throughout abdomen, bilateral extremities throughout the back, Data 10/02/23 04:46 10/02/23 04:46 Micro: Microbiology 10/01/23 21:38 Blood Culture - Preliminary Blood SPECIMEN COLLECTED 10/01/23 21:33 Blood Culture - Preliminary Blood SPECIMEN COLLECTED A&P Assessment and plan (1) [employer] spotted fever: (2) Tick bite: (3) Hyponatremia: (4) Diarrhea: (5) Acute kidney injury: (6) Leukopenia: (7) Thrombocytopenia: (8) Metabolic acidosis: (9) Transaminitis: (10) UTI (urinary tract infection): Plan [place] spotted fever, tickborne illness ? Multiple rash throughout his abdomen, chest, arms, legs, with hyponatremia, leukopenia, diarrhea thrombocytopenia, transaminitis, JOSEFA ? Skin examination did not find any ticks on him ? Plan ? Tick panel -continue doxycycline 100 mg IV every 12 hours ? Monitor closely Hyponatremia ? Secondary to above, does have a history of alcoholism, does have chronic hyponatremia times ? Check alcohol levels next?IV fluids Dehydration, with JOSEFA, hyponatremia, ? IV fluids, Exa?monitor creatinine Diarrhea ? Stool studies Transaminitis, ?likely related to tickborne illness ?will check acute on panel, HIV Metabolic acidosis, likely sec to dehydration, IV fluids Elevated troponins, no complaints of chest pain, serial troponins, serial EKGs, telemetry monitoring Possible UTI, Rocephin Full code, Lovenox for DVT prophylaxis continue above plan as per HnP Attestations Medical Necessity Statement*: Patient requires hospitalization, inpatient, greater than 2 midnights, for [place] spotted fever, tickborne illness, with hyponatremia dehydration, JOSEFA, transaminitis, metabolic acidosis, elevated troponins, possible UTI Diagnoses [employer] spotted fever A77.0 Tick bite W57.XXXA Hyponatremia E87.1 Diarrhea R19.7 Acute kidney injury N17.9 Leukopenia D72.819 Thrombocytopenia D69.6 Metabolic acidosis E87.20 Transaminitis R74.01 UTI (urinary tract infection) N39.0
[2023-10-02 10:48] LABS: Glucose Point of Care 163 mg/dL (70-110)
[2023-10-02 16:38] LABS: Glucose Point of Care 130 mg/dL (70-110)
[2023-10-02 20:27] LABS: Glucose Point of Care 259 mg/dL (70-110)
[2023-10-02] MEDS: enoxaparin 40 mg/0.4 mL Syringe SUBCUT (21:30)
[2023-10-02] MEDS: pantoprazole 40 mg SDV IVP (21:32)
[2023-10-02] MEDS: cefTRIAXone 1,000 MG in sodium chloride 0.9% (plus) 50 ML 100 MG IV (22:04)
[2023-10-02] MEDS: diphenhydrAMINE 25 mg Capsule PO (22:52)
[2023-10-03] VITALS (11 sets, daily range): BP systolic 94–121; BP diastolic 54–80; PULSE 69–79; RESP 17–24; TEMP 36.3–37; O2SAT 93–99
[2023-10-03 06:18] LABS: Basophils % 0.8 %; Eosinophils % 0.4 %; Hematocrit 43.9 % (37-53); Lymphocytes # 0.8 10^3/uL (0.8-4.8); Lymphocytes % 33.5 %; Mean Corpuscular HGB Conc 31.7 g/dL (30-55); Mean Corpuscular Hemoglobin 30.9 pg (27-33); Mean Corpuscular Volume 97.6 fl (82-101); Mean Platelet Volume 12.3 fL (7.4-10.4); Monocytes # 0.3 10^3/uL (0.2-0.9); Monocytes % 10.1 %; Neutrophils # 1.34 10^3/uL (1.8-7.7); Nucleated Red Blood Cells % 0 %; Platelet Count 111 10^3/cmm (157-399); Red Cell Distribution Width 14.5 % (12.1-15.1); White Blood Count 2.48 10^3/uL (3.29-11.43)
[2023-10-03 06:31] LABS: Anion Gap 14.5 (5-19); Blood Urea Nitrogen 9 mg/dL (6-20); Calcium 7.1 mg/dL (8.5-10.5); Carbon Dioxide 20 mmol/L (22-29); Chloride 105 mmol/L (98-107); Creatinine Clr Calc Pharmacy 151.9638; Glomerular Filtration Rate 116.2 mL/min (90-130); Glucose 137 mg/dL (65-115); Magnesium 1.3 mg/dL (1.7-2.3); Osmolality Calculated 283 mOsm/kg (285-295); Potassium 3.5 mmol/L (3.5-5.1); Sodium 136 mmol/L (136-145)
[2023-10-03 07:46] LABS: Glucose Point of Care 143 mg/dL (70-110)
--- NOTE | 2023-10-03 07:52 | PC.NURSE ---
Patient reports lower back pain 02/24. Physician notified and received orders for tizanidine 4mg PO once.
[2023-10-03] MEDS: sodium chloride 0.9% 1,000 ML 125 ML IV (08:35)
[2023-10-03] MEDS: tizanidine 4 mg Tablet PO (08:35)
[2023-10-03] MEDS: doxycycline 100 MG in sodium chloride 0.9% (plus) 100 ML IV ×2 (10:49→22:03)
[2023-10-03 11:37] LABS: Glucose Point of Care 175 mg/dL (70-110)
[2023-10-03] MEDS: insulin lispro 100 unit/1 mL SUBCUT ×2 (11:54→17:28)
--- NOTE | 2023-10-03 13:33 | P.PN_ITS ---
Subjective 2 Subjective: 57-year-old male with history of sleep a pnea alcohol use colon cancer, COPD on 4 L presented with fatigue malaise aches and pains. Currently receiving IV doxycycline for suspected tick bite. Rashes were examined. Reports having rash in armpits, groin area. He does report having some weakness this morning Vitals/I&O/Wt Last Vital Signs Temp 98.0 F 10/03/23 12:00 Pulse 69 10/03/23 12:00 Resp 17 10/03/23 12:00 BP 94/64 10/03/23 12:00 Pulse Ox 93 10/03/23 11:07 O2 Del Method Room Air 10/03/23 11:07 O2 Flow Rate 4 10/01/23 21:00 10/02/23 10/03/23 10/03/23 22:59 06:59 14:59 Intake Total 300 / 1622 1100 / 2722 580 / 580 Output Total 900 / 1850 100 / 1950 Balance -600 / -228 1000 / 772 580 / 580 Weight last 48 hrs Weight 290 lb Weight 287 lb 8 oz Weight 287 lb 8 oz Weight 275 lb Physical Exam 2 Const: COMMON NORMALS: no acute distress and patient oriented x3 HENMT: COMMON NORMALS: normocephalic HEAD & SCALP: normocephalic Eye: COMMON NORMALS: Equal, round and reactive pupils present and EOMs intact bilaterally PUPIL: Yes Equal, round and reactive pupils present Neck/C-Spine: COMMON NORMALS: no JVD Lymph: LYMPHATIC: no lymphadenopathy noted Resp: COMMON NORMALS: normal respiratory effort, No retractions, No use of accessory muscles and clear to auscultation bilaterally AUSCULTATION: clear to auscultation bilaterally Cardio: COMMON NORMALS: no JVD, regular rate, regular rhythm, S1 normal heart sound present and S2 normal heart sound present RATE: regular rate RHYTHM: regular rhythm HEART SOUNDS: S1 normal heart sound present and S2 normal heart sound present GI: COMMON NORMALS: Normal to inspection, nondistended, normoactive bowel sounds present, Soft to palpation and non-tender PALPATION: Yes Soft to palpation : COMMON NORMALS: Yes no CVA tenderness BLADDER/KIDNEY EXAM: Yes no CVA tenderness Back/Pelvis: COMMON NORMALS: no CVA tenderness Extremity: COMMON NORMALS: no pedal edema Neuro: COMMON NORMALS: patient oriented x3, CN's II-XII intact bilaterally, moves all extremities and no focal motor deficits Psych: COMMON NORMALS: mental status grossly normal Skin: NARRATIVE SKIN EXAM: Raised erythema armpits, groin, foul odor Data 10/03/23 05:03 10/03/23 05:03 Micro: Microbiology 10/02/23 13:37 Gram Stain - Final Axilla Wound Culture - Preliminary 10/01/23 21:38 Blood Culture - Preliminary Blood NEGATIVE TO DATE 10/01/23 21:33 Blood Culture - Preliminary Blood NEGATIVE TO DATE A&P Assessment and plan (1) [place] spotted fever: (2) Tick bite: (3) Hyponatremia: (4) Diarrhea: (5) Acute kidney injury: (6) Leukopenia: (7) Thrombocytopenia: (8) Metabolic acidosis: (9) Transaminitis: (10) UTI (urinary tract infection): Plan [place] spotted fever, tickborne illness ? Multiple rash throughout his abdomen, chest, arms, legs, with hyponatremia, leukopenia, diarrhea thrombocytopenia, transaminitis, JOSEFA ? Skin examination did not find any ticks on him ? Plan ? Tick panel pending -continue doxycycline 100 mg IV every 12 hours ? Monitor closely Hyponatremia ? Secondary to above, does have a history of alcoholism, does have chronic hyponatremia times ?resolved Dehydration, with JOSEFA, hyponatremia, ? IV fluids, Exa?monitor creatinine Diarrhea ? Stool studies Transaminitis, ?likely related to tickborne illness ?HIV negative Metabolic acidosis, likely sec to dehydration, IV fluids Elevated troponins, no complaints of chest pain, serial troponins, serial EKGs, telemetry monitoring Possible UTI, Rocephin Full code, Lovenox for DVT prophylaxis continue above plan as per HnP Attestations 2 Medical Necessity Statement*: abx and monitoring labs Coding Level of Care Code 08514 Diagnoses [place] spotted fever A77.0 Tick bite W57.XXXA Hyponatremia E87.1 Diarrhea R19.7 Acute kidney injury N17.9 Leukopenia D72.819 Thrombocytopenia D69.6 Metabolic acidosis E87.20 Transaminitis R74.01 UTI (urinary tract infection) N39.0
[2023-10-03 16:21] LABS: Glucose Point of Care 155 mg/dL (70-110)
[2023-10-03] MEDS: nystatin powder 15 gm Btl 1 APPLIC TOPICAL (17:28)
[2023-10-03 20:30] LABS: Glucose Point of Care 111 mg/dL (70-110)
[2023-10-03] MEDS: acetaminophen 325 mg Tablet 650 MG PO (20:41)
[2023-10-03] MEDS: enoxaparin 40 mg/0.4 mL Syringe SUBCUT (21:21)
[2023-10-03] MEDS: pantoprazole 40 mg SDV IVP (21:22)
[2023-10-03] MEDS: cefTRIAXone 1,000 MG in sodium chloride 0.9% (plus) 50 ML 100 MG IV (21:25)
[2023-10-04] VITALS (7 sets, daily range): BP systolic 125–140; BP diastolic 82–89; PULSE 69–99; RESP 16–32; TEMP 36.3–36.7; O2SAT 92–97
[2023-10-04] MEDS: sodium chloride 0.9% 1,000 ML 125 ML IV (05:40)
[2023-10-04 06:35] LABS: Glucose Point of Care 152 mg/dL (70-110)
[2023-10-04] MEDS: insulin lispro 100 unit/1 mL SUBCUT (08:03)
[2023-10-04] MEDS: nystatin powder 15 gm Btl 1 APPLIC TOPICAL (08:04)
--- NOTE | 2023-10-04 12:31 | PC.NURSE ---
Discharge Note Patient discharged to home via POV accompanied by brother. Discharge instructions reviewed with patient and/or public relations representative. Mobile pharmacy medications and/or prescriptions provided. Belongings/home medications returned.
--- NOTE | 2023-10-04 12:32 | P.DS_ITS ---
Discharge Providers Date of Admission: 10/01/23 21:07 Date of Discharge: October 04, 2023 Attending Provider at Admission: Eliazar Lawson MD Attending Provider at Discharge: Deedee Li MD Primary Care Provider: Dalia Flores NP Diagnoses at Discharge Discharge Diagnosis (1) Tick bite: Status: Acute (2) Hyponatremia: Status: Acute (3) Diarrhea: Status: Acute (4) Acute kidney injury: Status: Acute (5) Leukopenia: Status: Acute (6) Thrombocytopenia: Status: Acute (7) Metabolic acidosis: Status: Acute (8) Transaminitis: Status: Acute (9) UTI (urinary tract infection): Status: Acute Reason for Visit Reason for Visit: dr coppola, shraddha, body aches Hospital Course Hospital Course 57-year-old male presented to ER per recommendation of his doctor he reported shortness of breath body aches. Reported to have tick bites. Noted have rash. Started on antibiotics. His labs and electrolytes were monitored. He noted to have some abnormal electrolytes as well as transaminitis and elevated creatinine. His labs had improved. He was placed on doxycycline. As well as nystatin powder. He did have a tick panel sent that was pending. He was discharged in stable condition. He did leave before his discharge order was placed. Physical Exam Const: COMMON NORMALS: no acute distress and patient oriented x3 HENMT: COMMON NORMALS: normocephalic HEAD & SCALP: normocephalic Eye: COMMON NORMALS: Equal, round and reactive pupils present and EOMs intact bilaterally PUPIL: Yes Equal, round and reactive pupils present Neck/C-Spine: COMMON NORMALS: no JVD Lymph: LYMPHATIC: no lymphadenopathy noted Resp: COMMON NORMALS: normal respiratory effort, No retractions, No use of accessory muscles and clear to auscultation bilaterally AUSCULTATION: clear to auscultation bilaterally Cardio: COMMON NORMALS: no JVD, regular rate, regular rhythm, S1 normal heart sound present and S2 normal heart sound present RATE: regular rate RHYTHM: regular rhythm HEART SOUNDS: S1 normal heart sound present and S2 normal heart sound present GI: COMMON NORMALS: Normal to inspection, nondistended, normoactive bowel sounds present, Soft to palpation and non-tender PALPATION: Yes Soft to palpation : COMMON NORMALS: Yes no CVA tenderness BLADDER/KIDNEY EXAM: Yes no CVA tenderness Back/Pelvis: COMMON NORMALS: no CVA tenderness Extremity: COMMON NORMALS: no pedal edema Neuro: COMMON NORMALS: patient oriented x3, CN's II-XII intact bilaterally, moves all extremities and no focal motor deficits Psych: COMMON NORMALS: mental status grossly normal Skin: NARRATIVE SKIN EXAM: Raised erythema armpits, groin, improved Discharge Data Studies Completed and Pending Completed Studies During Hospitalization Category Date Time Status CT abdomen pelvis wo con [id number] Stat Cat Scan 10/01/23 21:34 Completed XR chest 1V portable [id number] Stat Exams 10/01/23 17:31 Completed Pending at discharge Category Date Time Status Blood Culture Stat Lab 10/01/23 21:38 Results C.Diff PCR (Lab) Routine Lab 10/01/23 22:06 Ordered Immunochemical Fecal OCB Routine Lab 10/01/23 22:06 Ordered Lactoferrin Routine Lab 10/01/23 22:06 Ordered OVA and Parasites, Conc and PE Routine Lab 10/01/23 22:06 Ordered Salmonella / Shigella / Campy Routine Lab 10/01/23 22:06 Ordered Tick Panel Stat Lab 10/01/23 23:45 Received Wound Culture and Gram Stain Routine Lab 10/02/23 13:37 Results Radiology Impressions Chest X-Ray 10/01/23 17:31 IMPRESSION: No acute cardiopulmonary disease. Abdomen/Pelvis CT 10/01/23 21:34 IMPRESSION: 1. Nonspecific enlargement of right common and external iliac lymph nodes and prominent right inguinal lymph nodes which have increased in size compared to prior study. Clinical correlation is recommended, and tissue sampling may be required definitive diagnosis. 2. No definitive acute intra-abdominal or pelvic process. 3. Other nonemergent findings above. COMMENTS: For patients with an IVC filter, recommend assessment for a management plan for the patient's IVC filter. If there is no established management plan, recommend referral to an interventional clinician on a nonemergent basis for evaluation. Laboratory Results WBC 2.48 10^3/uL (3.29-11.43) L 10/03/23 05:03 RBC 4.50 10^6/uL (3.85-5.65) 10/03/23 05:03 Hgb 13.90 g/dL (11.27-16.99) 10/03/23 05:03 Hct 43.9 % (37-53) 10/03/23 05:03 MCV 97.6 fl (82-101) 10/03/23 05:03 MCH 30.9 pg (27-33) 10/03/23 05:03 MCHC 31.7 g/dL (30-55) 10/03/23 05:03 RDW 14.5 % (12.1-15.1) 10/03/23 05:03 Plt Count 111 10^3/cmm (157-399) L 10/03/23 05:03 MPV 12.3 fL (7.4-10.4) H 10/03/23 05:03 Neut % (Auto) 54.0 % 10/03/23 05:03 Lymph % (Auto) 33.5 % 10/03/23 05:03 [place] % (Auto) 10.1 % 10/03/23 05:03 Eos % (Auto) 0.4 % 10/03/23 05:03 Baso % (Auto) 0.8 % 10/03/23 05:03 Neut # (Auto) 1.34 10^3/uL (1.8-7.7) L 10/03/23 05:03 Lymph # (Auto) 0.8 10^3/uL (0.8-4.8) 10/03/23 05:03 [place] # (Auto) 0.3 10^3/uL (0.2-0.9) 10/03/23 05:03 Eos # (Auto) 0.0 10^3/uL (0.0-0.8) 10/03/23 05:03 Baso # (Auto) 0.0 10^3/uL (0.0-0.1) 10/03/23 05:03 Nucleated RBC % (auto) 0 % 10/03/23 05:03 Nucleated RBCs # 0.0 /100WBC 10/03/23 05:03 ESR 20 mm/hr (0-10) H 10/01/23 17:51 PT 13.20 SECONDS (12.1-14.9) 10/01/23 17:51 INR 0.98 (0.8-1.2) 10/01/23 17:51 Specimen Type Arterial 10/01/23 18:14 Sample Site Radial, right 10/01/23 18:14 ABG pH 7.46 (7.35-7.45) H 10/01/23 18:14 ABG pCO2 26.6 mmHg (35-45) L 10/01/23 18:14 ABG pO2 84.0 mmHg (80.0-100.0) 10/01/23 18:14 ABG PO2/FiO2 Ratio 0 10/01/23 18:14 ABG HCO3 19.0 mmol/L (22-26) L 10/01/23 18:14 ABG Base Excess -3.1 mmol/L (-2.0-2.0) L 10/01/23 18:14 Kapil Test Pos 10/01/23 18:14 Hematocrit 48.1 % (42-52) 10/01/23 18:14 O2 Delivery Device Room air 10/01/23 18:14 FiO2 21.0 % 10/01/23 18:14 Housekeeping Worker ID Amh 10/01/23 18:14 Sodium 136 mmol/L (136-145) 10/03/23 05:03 Potassium 3.5 mmol/L (3.5-5.1) 10/03/23 05:03 Chloride 105 mmol/L (98-107) 10/03/23 05:03 Carbon Dioxide 20 mmol/L (22-29) L 10/03/23 05:03 Anion Gap 14.5 (5-19) 10/03/23 05:03 BUN 9 mg/dL (6-20) 10/03/23 05:03 Creatinine 0.7 mg/dL (0.7-1.2) 10/03/23 05:03 GFR Calculation 116.2 mL/min (90-130) 10/03/23 05:03 Glucose 137 mg/dL (65-115) H 10/03/23 05:03 POC Glucose 152 mg/dL (70-110) H 10/04/23 06:25 Calculated Osmolality 283 mOsm/kg (285-295) L 10/03/23 05:03 Lactic Acid 3.0 mmol/L (0.5-2.2) H 10/01/23 17:51 Lactic Acid (Sepsis) 1.1 mmol/L (0.5-2.2) 10/01/23 21:38 Calcium 7.1 mg/dL (8.5-10.5) L 10/03/23 05:03 Magnesium 1.3 mg/dL (1.7-2.3) L 10/03/23 05:03 Total Bilirubin 0.3 mg/dL (0.15-1.2) 10/02/23 04:46 AST 145 U/L (0-40) H 10/02/23 04:46 ALT 40 U/L (0-41) 10/02/23 04:46 Alkaline Phosphatase 86 U/L (40-130) 10/02/23 04:46 Ammonia 34 umol/L (16-60) 10/01/23 23:45 Creatine Kinase 2639 U/L (39-308) H* 10/01/23 23:45 Troponin T Baseline 58 ng/L (0-15) H 10/01/23 17:51 Troponin T 120 Minute 49.46 ng/L (0-15) H 10/01/23 20:05 Delta Troponin T -8.54 ABS# (0-10) L 10/01/23 20:05 Troponin T Hi Sens 6Hr 41.31 ng/L (0-15) H 10/01/23 23:45 Troponin T Hi Sens 6Hr Delta -16.69 ng/L (0-12) L 10/01/23 23:45 C-Reactive Protein 10.6 mg/L (0.0-4.9) H 10/01/23 20:05 NT-Pro-B Natriuret Pep 74 pg/mL (0-125) 10/01/23 17:51 Total Protein 6.7 g/dL (6.6-8.7) 10/02/23 04:46 Albumin 2.7 g/dL (3.5-5.2) L 10/02/23 04:46 Globulin 4.0 g/dL (1.3-4.6) 10/02/23 04:46 Procalcitonin 0.40 ng/mL (0-0.5) 10/01/23 20:05 TSH 3.11 uIU/mL (0.27-4.20) 10/01/23 20:05 Urine Color Nasrin (Yellow) 10/01/23 19:08 Urine Appearance Hazy (CLEAR) A 10/01/23 19:08 Urine pH 5 (5-7) 10/01/23 19:08 Ur Specific [place] 1.020 (1.005-1.030) 10/01/23 19:08 Urine Protein 1+ (Negative) H 10/01/23 19:08 Urine Glucose (UA) Norm (Normal) 10/01/23 19:08 Urine Ketones 1+ (Negative) H 10/01/23 19:08 Urine Blood 2+ (Negative) H 10/01/23 19:08 Urine Nitrate Not Reportable 10/01/23 19:08 Urine Bilirubin Not Reportable 10/01/23 19:08 Urine Urobilinogen Not Reportable 10/01/23 19:08 Ur Leukocyte Esterase Not Reportable 10/01/23 19:08 Urine RBC 0-4 /hpf (0-2) H 10/01/23 19:08 Urine WBC 0-4 /hpf (0-5) H 10/01/23 19:08 Ur Squamous Epith Cells 0-4 /hpf (0-5) H 10/01/23 19:08 Amorphous Sediment Trace /hpf 10/01/23 19:08 Urine Bacteria 1+ /hpf (NONE) H 10/01/23 19:08 Hyaline Casts 10-15 /lpf H 10/01/23 19:08 Fine Granular Casts 0-4 /lpf H 10/01/23 19:08 Urine Mucus 2+ /hpf 10/01/23 19:08 Urine Opiates Screen Negative ng/mL (Negative) 10/01/23 19:08 Ur Barbiturates Screen Negative ng/mL (Negative) 10/01/23 19:08 Ur Phencyclidine Scrn Negative ng/mL (Negative) 10/01/23 19:08 Ur Amphetamines Screen Positive ng/mL (Negative) H 10/01/23 19:08 U Benzodiazepines Scrn Negative ng/mL (Negative) 10/01/23 19:08 Urine Cocaine Screen Negative ng/mL (Negative) 10/01/23 19:08 U Marijuana (THC) Screen Positive ng/mL (Negative) H 10/01/23 19:08 Ethyl Alcohol < 10 mg/dL (0-10) 10/01/23 20:05 Adenovirus (PCR) Not detected (NOT DETECT) 10/01/23 17:51 C. pneumoniae DNA (PCR) Not detected (NOT DETECT) 10/01/23 17:51 Coronavirus 229E (PCR) Not detected (NOT DETECT) 10/01/23 17:51 Hepatitis A IgM Ab Non-reactive (Nonreactive) 10/01/23 23:45 Hep Bs Antigen Non-reactive (Nonreactive) 10/01/23 23:45 Hep B Core IgM Ab Non-reactive (Nonreactive) 10/01/23 23:45 Hepatitis C Antibody Non-reactive (Nonreactive) 10/01/23 23:45 HIV 1&2 Ab & HIV 1 Ag Non-reactive (Non-Reactiv) 10/01/23 23:45 HIV 1&2 Antibody Non-reactive (Non-Reactiv) 10/01/23 23:45 Human Metapneumovir PCR Not detected (NOT DETECT) 10/01/23 17:51 Influenza A (H1) PCR Not detected (NOT DETECT) 10/01/23 17:51 Influ A (H1/09) PCR Not detected (NOT DETECT) 10/01/23 17:51 Influenza A (H3) PCR Not detected (NOT DETECT) 10/01/23 17:51 Influenza Type A (PCR) Not detected (NOT DETECT) 10/01/23 17:51 Influenza Type B (PCR) Not detected (NOT DETECT) 10/01/23 17:51 M. pneumoniae (PCR) Not detected (NOT DETECT) 10/01/23 17:51 Parainfluenza 1 (PCR) Not detected (NOT DETECT) 10/01/23 17:51 Parainfluenza 2 (PCR) Not detected (NOT DETECT) 10/01/23 17:51 Parainfluenza 3 (PCR) Not detected (NOT DETECT) 10/01/23 17:51 Parainfluenza 4 (PCR) Not detected (NOT DETECT) 10/01/23 17:51 RSV Type A (PCR) Not detected (NOT DETECT) 10/01/23 17:51 RSV Type B (PCR) Not detected (NOT DETECT) 10/01/23 17:51 Entero/Rhino (PCR) Not detected (NOT DETECT) 10/01/23 17:51 SARS-CoV-2 (PCR) Not detected (NOT DETECT) 10/01/23 17:51 Vitals Last Vital Signs Temp 97.9 F 10/04/23 08:53 Pulse 91 10/04/23 12:29 Resp 16 10/04/23 12:29 BP 140/89 10/04/23 08:53 Pulse Ox 94 05/19/24 12:29 O2 Del Method Room Air 05/19/24 09:15 O2 Flow Rate 4 10/01/23 21:00 Discharge Plan Discharge Patient Disposition: Home Condition: Stable Prescriptions: New Nystop 100,000 unit/gram Powder 1 applic topical BID Qty: 60 0RF doxycycline hyclate 100 mg tablet 100 mg PO BID 7 Days Qty: 14 0RF Continued atorvastatin 40 mg tablet 40 mg PO DAILY pantoprazole 40 mg tablet,delayed release (DR/EC) 40 mg PO DAILY furosemide 20 mg tablet 20 mg PO DAILY Anoro Ellipta 62.5-25 mcg/actuation blister with device 1 inh inhalation DAILY Trulicity 1.5 mg/0.5 mL pen injector 1.5 mg SUBCUT Q7D metformin 500 mg tablet 1,000 mg PO BID albuterol sulfate 90 mcg/actuation HFA aerosol inhaler 2 inh INHALATION Q4H PRN (Reason: shortness of breath or wheezing) hydrochlorothiazide 25 mg tablet 25 mg PO DAILY ergocalciferol (vitamin D2) 1,250 mcg (50,000 unit) capsule See Rx Instructions .ROUTE .COMPLEX Rx Instructions: TAKE 1 CAPSULE BY MOUTH TWICE A MONTH (ON AND EACH MONTH naproxen 500 mg tablet 500 mg PO BID Arnuity Ellipta 100 mcg/actuation blister with device 1 inh INHALATION DAILY Discharge Orders: Discharge Order (Routine); Ordered 10/04/23 Ordered By: Deedee Li Referrals: Dalia Flores, [facility] [Primary Care Provider] - (Please call for an follow-up appointment within 4 to 7 days. Thank you) Discharge Diet: As Directed Discharge Activity: Resume usual activity Patient Instructions: Doxycycline (By mouth), Nystatin (On the skin) (Nyamyc, [place], Nystop, Pediaderm AF), Acute Kidney Injury (DC), Urinary Tract Infection in Men (DC), [place] Spotted Fever (DC), Opioid Safety Discharge Attestations Time Spent in Discharge Care*: less than 30 min Quality Metrics Clinical Quality Measures [ No reported AMI, CVA or VTE this stay] Coding Level of Care Code Acute Code for g Fwd Diagnoses Tick bite W57.XXXA Hyponatremia E87.1 Diarrhea R19.7 Acute kidney injury N17.9 Leukopenia D72.819 Thrombocytopenia D69.6 Metabolic acidosis E87.20 Transaminitis R74.01 UTI (urinary tract infection) N39.0
[2023-10-05 14:44] LABS: Lyme AB Screen <0.90 index
[2023-10-06 16:53] LABS: E. Chaffeensis AB IGG <1:64; E. Chaffeensis AB IGM <1:20
[2023-10-07 16:40] LABS: RMSF IGG NOT DETECTED; RMSF IGM NOT DETECTED
== END 2023-10-04 12:31 | disposition home or self-care (01) | DRG 641 ==
LOC: ER 20:56 → CSU 21:07
PROVIDERS: Internal Medicine; Admitting Provider Family Medicine; Emergency Provider Emergency Medicine; PCP Nurse Practitioner Family; Visit Provider Internal Medicine
DX: E87.1 Hypo-osmolality and hyponatremia (principal); A77.0 Spotted fever due to Rickettsia rickettsii; N17.9 Acute kidney failure, unspecified; Z68.42 Body mass index [BMI] 45.0-49.9, adult; N39.0 Urinary tract infection, site not specified; G47.33 Obstructive sleep apnea (adult) (pediatric); E78.5 Hyperlipidemia, unspecified; F32.A Depression, unspecified; I10 Essential (primary) hypertension; F10.10 Alcohol abuse, uncomplicated; E11.9 Type 2 diabetes mellitus without complications; E66.01 Morbid (severe) obesity due to excess calories; J44.9 Chronic obstructive pulmonary disease, unspecified; M17.0 Bilateral primary osteoarthritis of knee; F17.220 Nicotine dependence, chewing tobacco, uncomplicated; R79.89 Other specified abnormal findings of blood chemistry; R19.7 Diarrhea, unspecified; E86.0 Dehydration; E87.20 Acidosis, unspecified; D69.6 Thrombocytopenia, unspecified; Z85.038 Personal history of other malignant neoplasm of large intestine; Z99.81 Dependence on supplemental oxygen; Z79.84 Long term (current) use of oral hypoglycemic drugs; Z11.52 Encounter for screening for COVID-19; Z90.49 Acquired absence of other specified parts of digestive tract; Z86.711 Personal history of pulmonary embolism; Z95.828 Presence of other vascular implants and grafts
CPT/HCPCS: 36415; 36416; 36600; 71045; 74176; 80048; 80053; 80074; 80306; 80307; 81001; 81015; 82140; 82550; 82803; 82962; 83605; 83735; 83880; 84145; 84443; 84484; 85025; 85610; 85651; 86140; 86618; 86666; 86757; 87040; 87070; 87075; 87205; 87486; 87581; 87633; 87806; 93005; 94664; 96372; 96376; 99285; C9113; J0696; J1650; J1815; J3490; J7030